=== PATIENT | male | born 1965 | race Caucasian/White ===

== ENCOUNTER 2016-07-06 12:55 | Emergency (ER) | payer OTHER ==
[~2016-07-06] VITALS: Ht 185.4 cm; Wt 95.3 kg
[~2016-07-06 12:55] MED LIST: ALBUTEROL0.63 MG/1 INH/SOL; AMOXIL 875 MG875 MG PO; ASPIRIN CHILDRE81 MG PO; ATORVASTATIN CA20 MG PO; AZITHROMYCIN250 M1 PO; BENZONATATE100 M1 PO; CARTIA XT180 MG PO; GABAPENTIN300 MG; INDOMETHACIN50 MG; LEADER NIC14 MG/24 H TOP; LISINOPRIL AND1 TAB PO; NICODERM C14 MG/24 H TOP; OXYCODONE HCL15 MG PO; OXYCODONE HCL20 M2 PO; OXYCODONE5 M1 PO; PERCOCET 325 MG1 TA2 PO; PROVENTIL HFA6.7 GM INH; TOPROL XL 50MG50 MG PO; TOPROL XL25 MG PO; XARELTO20 MG PO
[2016-07-06 13:10] VITALS: BP 129/83
--- NOTE | 2016-07-06 14:12 | ED NECK/BACK PAIN COMPLAINT ---
History of Present Illness General Chief Complaint: Low Back Pain/Injury Stated Complaint: LBP/CHRONIC Source: patient, old records Exam Limitations: no limitations Vital Signs & Intake/Output Vital Signs & Intake/Output Vital Signs Date Time Temp Pulse Resp B/P Pulse O2 O2 Flow FiO2 Ox Delivery Rate 07/06 1428 Room Air Room Air 07/06 1310 97.7 79 20 129/83 96 Room Air Allergies Coded Allergies: NO KNOWN ALLERGIES (07/06/16) Reconcile Medications Albuterol Sulfate (Proventil Hfa) 6.7 GM HFA.AER.AD 2 PUF INH Q4 PRN bronchospasm Atorvastatin Calcium (Lipitor) 20 MG TABLET 20 MG PO 1700 CHOLESTEROL Azithromycin 250 MG TABLET 250 MG PO ONCE BRONCHITIS Benzonatate 100 MG CAPSULE 100 MG PO TID PRN cough DILTIAZEM HCL (Cartia Xt) 180 MG CAP.ER.24H 1 CAP PO BID ATRIAL FIBIRILLATION LISINOPRIL/HYDROCHLOROTHIAZIDE (Lisinopril-Hctz 10-12.5 MG Tab) (Unknown Strength) TABLET 1 TAB PO DAILY HTN (Reported) Oxycodone HCl 20 MG TABLET 1 TAB PO TID PAIN (Reported) Oxycodone HCl 10 MG TABLET 1 TAB PO BID PRN PAIN OXYCODONE HCL/ACETAMINOPHEN (Percocet 5-325 MG Tablet) 325 MG/5 MG TAB 1-2 TAB PO Q4-6 PRN PRN PAIN Rivaroxaban (Xarelto) 20 MG TABLET 1 TAB PO DAILY BLOOD THINNER with food Rivaroxaban (Xarelto) 20 MG TABLET 1 TAB PO DAILY BLOOD THINNER with food Triage Note: TRIAGE: PT TO ER C/C CHRONIC LOW BACK PAIN X 2 YEARS, RAN OUT OF OXYCODONE 10 MG LAST NIGHT. STATES HIS DOCTOR "CAN'T DO IT NO MORE AND I'M ON THE LIST TO GET INTO PAIN MANAGEMENT." Triage Nurses Notes Reviewed? yes HPI: Patient is a 50 year old male presents complaining of severe low back pain. Back pain x 2.5 years, reports he has 4 lumbar herniated discs. Was on 10 mg of oxycodone twice a day. Ran out yesterday, patient reports his primary care doctor, Dr. Rubio told him today that he can no longer prescribe pain medication and has referred him to pain management and told the patient to come to the ED today. Pain consistent with his chronic pain, sharp, radiates down his elft lower extremity. Denies numbness, incontinence, weakness. Past History Travel History Traveled to [place] past 21 day No Medical History Any Pertinent Medical History? see below for history Neurological: NONE EENT: NONE Cardiovascular: AFIB, hypertension, hyperlipidemia, ON XARELTO Respiratory: NONE Gastrointestinal: diverticulitis Hepatic: NONE Renal: nephrolithiasis, hematuria Musculoskeletal: chronic back pain, disk herniation Psychiatric: NONE Endocrine: NONE Blood Disorders: NONE Cancer(s): NONE MANAGER OF HOSPITAL/Reproductive: NONE Other Medical Hx: Hematuria secondary to bladder calculi History of MRSA: No History of VRE: No History of CDIFF: No Surgical History Surgical History: appendectomy, BACK SURGERY (2006) Psychosocial History Who do you live with Family Services at Home None What is your primary language Danish Tobacco Use: Current Daily Use Daily Tobacco Use Amount/Type: => 5 Cigarettes daily ETOH Use: occasional use Illicit Drug Use: denies illicit drug use Family History Family History, If Any: MOTHER, ; Cause: Lung cancer. FATHER (CVA). ; Cause: Surgical complication. Relation not specified for: FH: myocardial infarction Hx Contributory? No Review of Systems Review of Systems Constitutional: Reports: no symptoms. Eyes: Reports: no symptoms. Respiratory: Denies: cough, short of breath. Cardiovascular: Denies: chest pain. Gastrointestinal/Abdominal: Denies: abdominal pain. Musculoskeletal: Reports: see HPI. Skin: Reports: no symptoms. Neurological/Psychological: Denies: headache, numbness, paresthesia. Physical Exam Physical Exam General Appearance: well developed/nourished, alert, awake Head: atraumatic, normal appearance Eyes: Bilateral: normal appearance, PERRL, EOMI. Ears, Nose, Throat, Mouth: hearing grossly normal, moist mucous membrane Neck: normal inspection, supple, full range of motion Respiratory: no respiratory distress Gastrointestinal: soft, non-tender Back: normal inspection, normal range of motion, muscle spasm (lumbar bilateral) , mild diffuse lumbar tenderness Extremities: non-tender, normal range of motion Straight Leg Raising: Right: Pain at ____ degrees. Left: Pain at ____ degrees. DTR: Patellar: 2: L4 Right, L4 Left. Neurologic/Psych: no motor/sensory deficits, awake, alert, oriented x 3, normal mood/affect Skin: intact, normal color, warm/dry Progress Differential Diagnosis: AAA, cauda equina syn, herniated disc, myofascial strain , sciatica, T/L spine injury, ureterolithiasis Plan of Care: Current Medications Sig/Billie Start time Last Medication Dose Stop Time Status Admin Oxycodone/ 2 TAB ONCE ONE 07/06 1430 UNVr Acetaminophen 07/06 1431 (Percocet) Pain consistent with patient's previous chronic back pain. No red flags on exam or by history. Labs and imaging deferred. Patient's history reviewed in [facility] (OLIVIER GERMAN,MARTY) Departure Departure Time of Disposition: 1416 Disposition: HOME OR SELF CARE Condition: Stable Clinical Impression Primary Impression: Chronic back pain Qualifiers: Back pain location: low back pain Back pain laterality: bilateral Sciatica presence: with sciatica Sciatica laterality: sciatica of left side Qualified Codes: M54.42 - Lumbago with sciatica, left side; G89.29 - Other chronic pain Referrals: BEL RUBIO MD (PCP/Family) Additional Instructions: Follow up with your primary doctor and pain management. Return to the ER if numbness, incontinence, abnormal bruising or bleeding or worsening of symptoms. Departure Forms: Customer Survey General Discharge Information Prescriptions: Current Visit Scripts Oxycodone HCl 1 TAB PO BID PRN PAIN #20 TAB
[2016-07-06] MEDS ORDERED: OXYCODONE HCL10 M2 PO (14:20)
== END 2016-07-06 14:31 ==
LOC: ERH 12:55
DX: M54.5 Low back pain (principal)

== ENCOUNTER 2016-07-16 11:23 | Emergency (ER) | payer OTHER ==
[~2016-07-16] VITALS: Ht 185.4 cm; Wt 95.3 kg
[~2016-07-16 11:23] MED LIST changes: +OXYCODONE HCL10 M2 PO
--- NOTE | 2016-07-16 12:38 | ED NECK/BACK PAIN COMPLAINT ---
History of Present Illness General Chief Complaint: Low Back Pain/Injury Stated Complaint: LOW BACK PAIN Source: patient, old records Exam Limitations: no limitations Vital Signs & Intake/Output Vital Signs & Intake/Output Vital Signs Date Time Temp Pulse Resp B/P Pulse O2 O2 Flow FiO2 Ox Delivery Rate 07/16 1251 97.3 92 18 122/78 97 Room Air 07/16 1126 96.1 100 18 118/84 98 Room Air Allergies Coded Allergies: NO KNOWN ALLERGIES (07/06/16) Reconcile Medications Albuterol Sulfate (Proventil Hfa) 6.7 GM HFA.AER.AD 2 PUF INH Q4 PRN bronchospasm Atorvastatin Calcium (Lipitor) 20 MG TABLET 20 MG PO 1700 CHOLESTEROL DILTIAZEM HCL (Cartia Xt) 180 MG CAP.ER.24H 1 CAP PO BID ATRIAL FIBIRILLATION LISINOPRIL/HYDROCHLOROTHIAZIDE (Lisinopril-Hctz 10-12.5 MG Tab) (Unknown Strength) TABLET 1 TAB PO DAILY HTN (Reported) Methylprednisolone. (Medrol) 4 MG TAB.DS.PK 1 DP PO AD RADICULOPATHY 6 on day 1 then reduce by one tablet daily until gone Oxycodone HCl 20 MG TABLET 1 TAB PO TID PAIN (Reported) Oxycodone HCl 10 MG TABLET 1 TAB PO TID PRN BREAKTHROUGH PAIN Oxycodone HCl 10 MG TABLET 1 TAB PO BID PRN PAIN Rivaroxaban (Xarelto) 20 MG TABLET 1 TAB PO DAILY BLOOD THINNER with food Triage Note: 50 Y/O MALE C/O LOW BACK PAIN X FEW YEARS. WAS PRESCRIBED OXYCODONE 10MG DURING LAST ED VISIT IN JUN AND STATES HE RAN OUT LAST NIGHT. Triage Nurses Notes Reviewed? yes Onset: Abrupt Duration: week(s): (2), constant, waxing and waning Timing: recent history Quality/Severity: moderate, severe, aching Location: lumbar spine, paraspinous muscles Radiation: buttocks, upper legs Method of Injury: unknown Loss of Consciousness: no loss of consciousness Modifying Factors: movement, pain medication, rest Associated Symptoms: denies HPI: 50-year-old male with history of A. fib on XARELTO, chronic back pain status post discectomy several years ago presents emergency room for evaluation complaining of exacerbation of his chronic pain right greater than left that is draining down his right leg. He denies any known new injury trauma or fall. He denies any urinary or bowel incontinence no hematuria abdominal pain fever chills chest pain shortness of breath. The patient is scheduled to establish care with pain management and Rekha on July 24 and presents today requesting refill of his oxycodone. Pain is worse with change in position better at rest. There are no other associated symptoms or modifying factors otherwise. (IAN CASTORENA) Past History Travel History Traveled to [place] past 21 day No Medical History Any Pertinent Medical History? see below for history Neurological: NONE EENT: NONE Cardiovascular: AFIB, hypertension, hyperlipidemia, ON XARELTO Respiratory: NONE Gastrointestinal: diverticulitis Hepatic: NONE Renal: nephrolithiasis, hematuria Musculoskeletal: chronic back pain, disk herniation Psychiatric: NONE Endocrine: NONE Blood Disorders: NONE Cancer(s): NONE FIFTH HAND/Reproductive: NONE Other Medical Hx: Hematuria secondary to bladder calculi History of MRSA: No History of VRE: No History of CDIFF: No Surgical History Surgical History: appendectomy, BACK SURGERY (2006) Psychosocial History Who do you live with Family Services at Home None What is your primary language Maltese Tobacco Use: Current Daily Use Daily Tobacco Use Amount/Type: => 5 Cigarettes daily Family History Family History, If Any: MOTHER, ; Cause: Lung cancer. FATHER (CVA). ; Cause: Surgical complication. Relation not specified for: FH: myocardial infarction Hx Contributory? No (IAN CASTORENA) Review of Systems Review of Systems Constitutional: Reports: see HPI. All Other Systems: Reviewed and Negative Comments Review of systems: See HPI, All other systems negative. Constitutional, no chills no fever, no malaise HEENT: No visual changes no sore throat no congestion Cardiovascular: No chest pain , no palpitation Skin, no rashes, no change in skin Respiratory: No dyspnea no cough no sputum GI: No nausea no vomiting, no diarrhea, no bloating/constipation : No dysuria No hematuria, no frequency, Muscle skeletal: No joint pain, no joint swelling, back pain, no neck pain, Neurologic: No numbness, no headache Psych: No stress Heme/endocrine: No bruising no bleeding Immunology: No lymphadenopathy (IAN CASTORENA) Physical Exam Physical Exam General Appearance: well developed/nourished, alert, awake Neck: normal inspection, supple, full range of motion Comments: Well-developed well-nourished person in no acute distress HEENT: Normal EENT exam; PERRL, EOMI HEAD is atraumatic. moist mucous membranes. Neck: Supple, , normal range of motion without pain or tenderness Back: Right sided paralumbar muscle tenderness with palpation of midline tenderness, no CVA tenderness. Full range of motion Cardiovascular: Regular rate and rhythms no murmurs rubs Respiratory: Chest nontender.There were no bony deformities, no asymmetry. No respiratory distress. Patient speaking in full complete sentences. Breath sounds clear to auscultation bilaterally: NO W/R/R Abdomen: Soft, nontender nondistended, no appreciable organomegaly. Normal bowel sounds. No rebound/guarding, No appreciable enlargement of the abdominal aorta, No ascites. Extremity: No edema, has a straight leg raise to the right lower extremity full range of motion of extremities, normal and equal pulses bilaterally, 5 out of 5 strength noted to bilateral upper and lower extremities Neuro: Alert oriented x3, motor sensory normal, There were no obvious focal neurologic abnormalities. Skin: No appreciable rash on exposed skin, skin is warm and dry. Psych: Mood and affect is normal, memory and judgment is normal. (IAN CASTORENA) Progress Differential Diagnosis: herniated disc, myofascial strain, pyelo/UTI, sciatica, spinal cord inj, ureterolithiasis, epidural abscess Plan of Care: Patient clinically looks well, he has an appointment with pain management he states on July 24 in [place]. No urinary bowel dysfunction. No numbness in the genital area. Strength intact. Gross sensation intact. Patient resting comfortably and in no apparent distress. Pain is worse with range of motion. Pain is reproducible IN back with no bruising or ecchymosis noted. . Patient is to follow-up with primary care doctor. May need MRI of the lower back at some point time. No concerns for cauda equina at this point time. I considered this diagnosis but patient does not have any symptoms consistent with cauda equina. Patient has no secondary causes of back pain. No cardiac, pulmonary, or abdominal complaints. No abdominal pain on exam. Cardiac pulmonary exam within normal limits. No rashes, afebrile, denies recent weight loss, dizziness, lightheadedness (IAN CASTORENA) Departure Departure Time of Disposition: 1241 Disposition: HOME OR SELF CARE Condition: Stable Clinical Impression Primary Impression: Chronic back pain Referrals: RICHARD LOVETT,BEL (PCP/Family) Additional Instructions: Follow-up with your primary care physician as well as pain management as scheduled next week this emergency room cannot continue to prescribe narcotic pain medication. Oxycodone as directed use caution as this is a narcotic and highly addictive. This will make you drowsy no driving or drinking alcohol while taking. Medrol Dosepak as discussed. These prescriptions were sent to [facility]. Rest ice and ibuprofen 800 mg every 8 hours Departure Forms: Customer Survey General Discharge Information Prescriptions: Current Visit Scripts Oxycodone HCl 1 TAB PO TID PRN BREAKTHROUGH PAIN #20 TAB Methylprednisolone. (Medrol) 1 DP PO AD #1 DP 6 on day 1 then reduce by one tablet daily until gone (CHERELLE GERMAN,IAN)
[2016-07-16] MEDS ORDERED: MEDROL4 M2 PO (12:44)
[2016-07-16] MEDS ORDERED: OXYCODONE HCL10 M2 PO (12:44)
[2016-07-16 12:51] VITALS: BP 122/78
== END 2016-07-16 12:51 ==
LOC: ERH 11:23
DX: G89.29 Other chronic pain (principal); M54.5 Low back pain

== ENCOUNTER 2016-08-01 19:51 | Emergency (ER) | payer OTHER ==
[~2016-08-01] VITALS: Ht 185.4 cm; Wt 95.3 kg
[~2016-08-01 19:51] MED LIST changes: +MEDROL4 M2 PO
--- NOTE | 2016-08-01 21:09 | ED MVC/FALL/TRAUMA COMPLAINT ---
History of Present Illness General Chief Complaint: Fall Stated Complaint: FALL,BODY PAIN Source: patient Exam Limitations: no limitations Vital Signs & Intake/Output Vital Signs & Intake/Output Vital Signs Date Time Temp Pulse Resp B/P Pulse O2 O2 Flow FiO2 Ox Delivery Rate 08/01 2312 96.5 60 18 96/70 08/017 100/64 08/01 2025 97.0 56 20 98/60 95 Room Air ED Intake and Output 08/02 0000 08/01 1200 Intake Total 20 Output Total Balance 20 Intake, Oral 20 Patient 210 lb Weight Allergies Coded Allergies: NO KNOWN ALLERGIES (08/01/16) Reconcile Medications Albuterol Sulfate (Proventil Hfa) 6.7 GM HFA.AER.AD 2 PUF INH Q4 PRN bronchospasm Atorvastatin Calcium (Lipitor) 20 MG TABLET 20 MG PO 1700 CHOLESTEROL DILTIAZEM HCL (Cartia Xt) 180 MG CAP.ER.24H 1 CAP PO BID ATRIAL FIBIRILLATION Ketorolac Tromethamine 10 MG TABLET 1 TAB PO TID PRN PAIN RECEIVED im IN er LISINOPRIL/HYDROCHLOROTHIAZIDE (Lisinopril-Hctz 10-12.5 MG Tab) (Unknown Strength) TABLET 1 TAB PO DAILY HTN (Reported) Metaxalone (Skelaxin) 800 MG TABLET 1 TAB PO TID PRN MUSCLE RELAXOR Methylprednisolone. (Medrol) 4 MG TAB.DS.PK 1 DP PO AD RADICULOPATHY 6 on day 1 then reduce by one tablet daily until gone Oxycodone HCl 20 MG TABLET 1 TAB PO TID PAIN (Reported) Oxycodone HCl 10 MG TABLET 1 TAB PO TID PRN BREAKTHROUGH PAIN Oxycodone HCl 10 MG TABLET 1 TAB PO BID PRN PAIN Rivaroxaban (Xarelto) 20 MG TABLET 1 TAB PO DAILY BLOOD THINNER with food Triage Note: TRIAGE: PT TO ER WITH C/C PAIN TO R LOW BACK AND RIB AREA S/P FALL APPROX 30 MIN COATER HELPER. STATES HE SLIPPED ON CEMENT STAIRS, FALLING APPROX 3-4 STEPS. HAS HX OF CHRONIC BACK PAINS, ?BACK PROBLEM AT BASELINE. TOOK 800 MG IBUPROFEN X 2 TABS JUST COATER HELPER. Triage Nurses Notes Reviewed? yes Onset: Abrupt Duration: constant Timing: single episode today Severity Numbers: 10 Injuries/Fall Location: chest, back Loss of Consciousness: no loss of consciousness HPI: Patient is a 50-year-old male with past medical history of chronic pain and chronic back pain who presents emergent stain that he was walking down steps misstepped and fell and struck the right lateral aspect of his ribs to the steps. Patient denies any preceding episode of dizziness or lightheaded sensation. Patient states that at lunch she had one beer only. Denies any head strike denies any loss of consciousness. Complains of severe right rib lateral pain and severe back pain. Denies any extremity weakness or bladder incontinence or bowel incontinence. No medications prior to arrival. Patient was brought in by his friend. (IAN CALABRESE) Past History Travel History Traveled to [facility] past 21 day No Medical History Any Pertinent Medical History? see below for history Neurological: NONE EENT: NONE Cardiovascular: AFIB, hypertension, hyperlipidemia, ON XARELTO Respiratory: NONE Gastrointestinal: diverticulitis Hepatic: NONE Renal: nephrolithiasis, hematuria Musculoskeletal: chronic back pain, disk herniation Psychiatric: NONE Endocrine: NONE Blood Disorders: NONE Cancer(s): NONE SIDEROGRAPHIST/Reproductive: NONE Other Medical Hx: Hematuria secondary to bladder calculi History of MRSA: No History of VRE: No History of CDIFF: No Surgical History Surgical History: appendectomy, BACK SURGERY (2006) Psychosocial History Who do you live with Family Services at Home None What is your primary language Georgian Tobacco Use: Current Daily Use Daily Tobacco Use Amount/Type: => 5 Cigarettes daily ETOH Use: occasional use Illicit Drug Use: marijuana Family History Family History, If Any: MOTHER, ; Cause: Lung cancer. FATHER (CVA). ; Cause: Surgical complication. Relation not specified for: FH: myocardial infarction Hx Contributory? No (IAN CALABRESE) Review of Systems Review of Systems Constitutional: Reports: no symptoms. Eyes: Reports: no symptoms. Ears, Nose, Throat, Mouth: Reports: no symptoms. Respiratory: Reports: see HPI. Denies: cough, short of breath. Cardiovascular: Reports: see HPI, chest pain. Gastrointestinal/Abdominal: Reports: no symptoms. Genitourinary: Reports: no symptoms. Musculoskeletal: Reports: see HPI. Skin: Reports: no symptoms. Neurological/Psychological: Reports: no symptoms. All Other Systems: Reviewed and Negative (IAN CALABRESE) Physical Exam Physical Exam General Appearance: mild distress Comments: HEENT: Normal EENT exam, extraocular motion intact, no nystagmus. Pupils equally round and reactive to light and accommodation. Nose is atraumatic. External auditory canal and Tympanic membranes clear. Pharynx normal. No swelling or edema. Neck: Supple, no lymphadenopathy, normal range of motion without pain or tenderness Back: Normal inspection no signs of trauma decreased active range of motion generalized point tenderness noted Cardiovascular: Regular rate and rhythms no murmurs rubs or gallops, normal JVP Respiratory: Normal inspection no signs of trauma right-sided lateral rib point tenderness noted No respiratory distress.breath sounds clear to auscultation bilaterally Abdomen: Soft, nontender nondistended, no appreciable organomegaly. Normal bowel sounds. No ascites Extremity: No edema, no calf tenderness to palpation, normal and equal pulses. Bilateral lower extremity myotomes dermatomes intact Neuro: Alert oriented x3, motor sensory normal, cranial nerves II through XII grossly intact. Skin: No appreciable rash on exposed skin, skin is warm and dry. Psych: Mood and affect is normal, memory and judgment is normal. Core Measures ACS in differential dx? No Severe Sepsis Present: No Septic Shock Present: No (IAN CALABRESE) Progress Differential Diagnosis: aoritic dissection, abd injury, C/T/L spine injury, ext injury, ICH, pelvis injury, pnemothorax, spinal cord injury Plan of Care: Current Medications Sig/Billie Start time Last Medication Dose Stop Time Status Admin Ketorolac 30 MG ONCE ONE 08/01 2345 UNVr Tromethamine 08/01 2346 (Toradol) Sodium Chloride 1,000 ML BOLUS ONE 08/01 2330 AC (Normal Saline 0.9%) 08/02 0029 Patient initially noted to have mild distress and hypotensive however CT scans were unremarkable for patient was symptomatically painful however there were no signs of trauma. Narcotics were withheld I strongly advised patient to receive IV fluid bolus for his low blood sugar however he declined and which I strongly advised patient to receive this however he wants to leave AGAINST MEDICAL ADVICE. Patient was strongly advised to follow up with his cardiology appointment as he has one tomorrow with Dr. Carbone. Patient had normal steady gait on discharge (IAN CALABRESE) Diagnostic Imaging: Viewed by Me: CT Scan. Radiology Impression: no acute abnormality, no fracture Comments: PATIENT: IAN SANFORD PRESENT AGE: 50 PATIENT ACCOUNT NO: [id number] : 66 LOCATION: [facility] ORDERING PHYSICIAN: IAN GERMAN SERVICE DATE: 08/01/16 EXAM TYPE: CAT - CT CERV SPINE WO IV CONTRAST; CT CHEST WO IV CONTRAST; CT HEAD WO IV CONTRAST; CT LUMB SPINE WO IV CONTRAST EXAMINATION: CT CHEST WO IV CONTRAST, CT LUMB SPINE WO IV CONTRAST, CT HEAD WO IV CONTRAST, CT CERV SPINE WO IV CONTRAST CLINICAL INFORMATION: 50-year-old male experienced trauma. Right lateral rib pain. Head trauma. Cervical and lumbar spine pain. COMPARISON: CT the brain on 10/09/2015. Chest x-ray on the same day. TECHNIQUE: Noncontrast enhanced scans of the brain, cervical spine, chest, and LS-spine. Coronal and sagittal reformats obtained at the acquisition workstation. DLP: 933 mGy-cm c-spine and brain, 624 my-cm for LS spine, 319 mGy-cm for chest. FINDINGS: Brain: There is no evidence of acute intracranial hemorrhage or territorial infarction. No mass or midline shift is seen. Alexandra-white matter tissue differentiation is normal. No abnormal extra-axial collections are seen. The ventricles are normal in size. Brain attenuation is normal. The calvarium is intact the soft tissues are normal. There is ethmoid sinusitis. Mastoid aeration is normal. C-spine: Vertebral height alignment are normal. No fractures are seen. There is accessory ossification center involving the spinous process at C7. The prevertebral soft tissues are normal. The C1-C2 relationships are normal. Small bubbles of air are seen at the level of C4-C5 to the right of midline representing herniating degenerative disc material or degenerative changes in the uncovertebral joints. Series 801, image 21. Additional arthritis is seen in the uncovertebral joints above and below this level. CHEST: There is no pneumothorax or hemothorax. Lungs are clear showing no lung contusion. Subcentimeter lymph nodes are present in the mediastinum but there is no mediastinal hematoma formation. Patient does have a hiatal hernia. The heart is unremarkable except for some calcification in the left coronary artery. A tiny great calcified atheromatous seen in the left upper lobe. Series 5, image 124. Another calcified granuloma is seen in the anterior segment of the left upper lobe. Series 5, image 224. A tiny calcified granuloma is seen in the left upper lobe, series 5, image 203. Another calcified granuloma is seen in the right lower lobe. Series 5, image 288. Additional calcified granulomas are seen in the right middle lobe. Vertebral height alignment are maintained. Large osteophytes are present in the lower thoracic spine. The sternum is intact. No rib fractures are seen. LS-spine: Vertebral height alignment are normal. There is no fracture. Sacrum is intact. The paraspinal soft tissues are normal. A tiny accessory spleen is evident medial to the spleen. IMPRESSION: 1. No acute intracranial pathology. 2. No evidence of cervical spine fracture. 3. No posttraumatic sequela in the chest. Multiple calcified granulomata in the lungs. 4. No evidence of fracture or subluxation of the LS-spine. DICTATED BY: JANIS RAVI MD DATE/TIME DICTATED:08/01/162247 BOBBIN PAINTER:MATTHIAS DATE/TIME TRANSCRIBED:08/01/162247 (IAN CALABRESE) Departure Departure Disposition: LEFT AGAINST MEDICAL ADVICE Condition: Stable Clinical Impression Primary Impression: Low back strain Secondary Impressions: Arthralgia, Hypotension Referrals: BEL RAMOS MD (PCP/Family) Additional Instructions: As discussed begin icing the area directly 20 minutes every 2 hours. Begin the prescription of ketorolac for pain and inflammation. Begin the prescription Skelaxin for muscle relaxer. Follow-up with your voice systems engineer tomorrow as you have an appointment. Begin drinking plenty water for hydration. Again your leaving AGAINST MEDICAL ADVICE. If symptoms worsen return to emergency room. Follow-up with your primary care doctor in 2 days if no better. Prescriptions waiting at [facility] pharmacy. Departure Forms: Customer Survey General Discharge Information Prescriptions: Current Visit Scripts Ketorolac Tromethamine 1 TAB PO TID PRN PAIN #15 TAB RECEIVED im IN er Metaxalone (Skelaxin) 1 TAB PO TID PRN MUSCLE RELAXOR #15 TAB (IAN CALABRESE) PA/MARKETING PROGRAM COORDINATOR Co-Sign Statement Statement: ED Attending supervision documentation- [] I saw and evaluated the patient. I have also reviewed all the pertinent lab results and diagnostic results. I agree with the findings and the plan of care as documented in the PA's/MARKETING PROGRAM COORDINATOR's documentation. [X] I have reviewed the ED Record and agree with the PA's/MARKETING PROGRAM COORDINATOR's documentation. [] Additions or exceptions (if any) to the PAs/MARKETING PROGRAM COORDINATOR's note and plan are summarized below: [] (CHRIS LOVETT,KEENA Mcelroy)
[2016-08-01 23:12] VITALS: BP 96/70
--- NOTE | 2016-08-01 23:16 | CT SCAN REPORT ---
EXAMINATION: CT CHEST WO IV CONTRAST, CT LUMB SPINE WO IV CONTRAST, CT HEAD WO IV CONTRAST, CT CERV SPINE WO IV CONTRAST CLINICAL INFORMATION: 50-year-old male experienced trauma. Right lateral rib pain. Head trauma. Cervical and lumbar spine pain. COMPARISON: CT the brain on 10/09/2015. Chest x-ray on the same day. TECHNIQUE: Noncontrast enhanced scans of the brain, cervical spine, chest, and LS-spine. Coronal and sagittal reformats obtained at the acquisition workstation. DLP: 933 mGy-cm c-spine and brain, 624 my-cm for LS spine, 319 mGy-cm for chest. FINDINGS: Brain: There is no evidence of acute intracranial hemorrhage or territorial infarction. No mass or midline shift is seen. Alexandra-white matter tissue differentiation is normal. No abnormal extra-axial collections are seen. The ventricles are normal in size. Brain attenuation is normal. The calvarium is intact the soft tissues are normal. There is ethmoid sinusitis. Mastoid aeration is normal. C-spine: Vertebral height alignment are normal. No fractures are seen. There is accessory ossification center involving the spinous process at C7. The prevertebral soft tissues are normal. The C1-C2 relationships are normal. Small bubbles of air are seen at the level of C4-C5 to the right of midline representing herniating degenerative disc material or degenerative changes in the uncovertebral joints. Series 801, image 21. Additional arthritis is seen in the uncovertebral joints above and below this level. CHEST: There is no pneumothorax or hemothorax. Lungs are clear showing no lung contusion. Subcentimeter lymph nodes are present in the mediastinum but there is no mediastinal hematoma formation. Patient does have a hiatal hernia. The heart is unremarkable except for some calcification in the left coronary artery. A tiny great calcified atheromatous seen in the left upper lobe. Series 5, image 124. Another calcified granuloma is seen in the anterior segment of the left upper lobe. Series 5, image 224. A tiny calcified granuloma is seen in the left upper lobe, series 5, image 203. Another calcified granuloma is seen in the right lower lobe. Series 5, image 288. Additional calcified granulomas are seen in the right middle lobe. Vertebral height alignment are maintained. Large osteophytes are present in the lower thoracic spine. The sternum is intact. No rib fractures are seen. LS-spine: Vertebral height alignment are normal. There is no fracture. Sacrum is intact. The paraspinal soft tissues are normal. A tiny accessory spleen is evident medial to the spleen. IMPRESSION: 1. No acute intracranial pathology. 2. No evidence of cervical spine fracture. 3. No posttraumatic sequela in the chest. Multiple calcified granulomata in the lungs. 4. No evidence of fracture or subluxation of the LS-spine.
[2016-08-01] MEDS ORDERED: KETOROLAC TROME10 M1 PO (23:48)
[2016-08-01] MEDS ORDERED: SKELAXIN800 M1 PO (23:48)
== END 2016-08-02 00:12 | disposition left against medical advice (07) ==
LOC: ERH 19:51
DX: S39.012A Strain of muscle, fascia and tendon of lower back, initial encounter (principal); I95.9 Hypotension, unspecified; M25.50 Pain in unspecified joint; W10.9XXA Fall (on) (from) unspecified stairs and steps, initial encounter
CPT/HCPCS: 96372

== ENCOUNTER 2016-10-15 11:38 | Emergency (ER) | payer OTHER ==
[~2016-10-15] VITALS: Ht 182.9 cm; Wt 95.3 kg
[~2016-10-15 11:38] MED LIST changes: +KETOROLAC TROME10 M1 PO; +SKELAXIN800 M1 PO
[2016-10-15 11:55] VITALS: BP 149/88
--- NOTE | 2016-10-15 12:17 | ED UPPER/LOWER EXTREMITY COMPL ---
History of Present Illness General Chief Complaint: General Adult Stated Complaint: FALL X 3 WEEKS AGO, LT HIP LOW BACK PAIN Source: patient Exam Limitations: no limitations Vital Signs & Intake/Output Vital Signs & Intake/Output Vital Signs Date Time Temp Pulse Resp B/P B/P Pulse O2 O2 Flow FiO2 Mean Ox Delivery Rate 10/15 1155 96.8 66 18 149/88 99 Room Air Allergies Coded Allergies: NO KNOWN ALLERGIES (08/01/16) Reconcile Medications Albuterol Sulfate (Proventil Hfa) 6.7 GM HFA.AER.AD 2 PUF INH Q4 PRN bronchospasm Atorvastatin Calcium (Lipitor) 20 MG TABLET 20 MG PO 1700 CHOLESTEROL DILTIAZEM HCL (Cartia Xt) 180 MG CAP.ER.24H 1 CAP PO BID ATRIAL FIBIRILLATION Ketorolac Tromethamine 10 MG TABLET 1 TAB PO TID PRN PAIN RECEIVED im IN er LISINOPRIL/HYDROCHLOROTHIAZIDE (Lisinopril-Hctz 10-12.5 MG Tab) (Unknown Strength) TABLET 1 TAB PO DAILY HTN (Reported) Meloxicam (Mobic) 15 MG TABLET 1 TAB PO DAILY PRN pain Metaxalone (Skelaxin) 800 MG TABLET 1 TAB PO TID PRN MUSCLE RELAXOR Methylprednisolone. (Medrol) 4 MG TAB.DS.PK 1 DP PO AD RADICULOPATHY 6 on day 1 then reduce by one tablet daily until gone Oxycodone HCl 20 MG TABLET 1 TAB PO TID PAIN (Reported) Oxycodone HCl 10 MG TABLET 1 TAB PO TID PRN BREAKTHROUGH PAIN Oxycodone HCl 10 MG TABLET 1 TAB PO BID PRN PAIN Oxycodone HCl/Acetaminophen (Percocet 5-325 MG Tablet) 5 MG-325 MG TABLET 1 TAB PO BID PRN PAIN Rivaroxaban (Xarelto) 20 MG TABLET 1 TAB PO DAILY BLOOD THINNER with food Triage Note: PT STATES THAT HE FELL ABOUT 1 MONTH AGO AND HURT HIS LOW BACK AND L HIP, WAS SEEN AT URGENT CARE HAD XRAYS THAT WERE NEGATIVE. PT HAS BEEN ON OXYCODONE FOR A COUPLE OF YEARS AND THAT HIS PMD STOPPED PRESCRIBING THEM 2 MONTHS AGO. STATES THAT HE RAN OUT OXYCODONE 1 WEEK AGO. HIS PMD WANTS HIME TO GO TO PAIN MANAGEMENT Triage Nurses Notes Reviewed? yes Onset: Abrupt Duration: constant Timing: single episode today Severity: severe Severity Numbers: 7 Method of Injury: unknown HPI: Patient is a 51-year-old male with a past medical history of chronic back pain who used to receive significant narcotics on a regular basis by her primary care doctor however this was discontinued recently patient states that 1 month ago he fell going down stairs and suffered significant contusion to his left hip where he was evaluated at urgent care facility received unremarkable x-ray findings for fractures 4 where his tenderness was located. Patient states that he had a short term of narcotics administered where he had complete resolution of the symptoms. Patient states that this morning he woke up with generalized worsening back pain and denies any mechanism of injury. (IAN CALABRESE) Past History Travel History Traveled to [place] past 21 day No Medical History Any Pertinent Medical History? 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 FATHER (CVA). ; Cause: Surgical complication. Relation not specified for: FH: myocardial infarction Hx Contributory? No (IAN CALABRESE) Review of Systems Review of Systems Constitutional: Reports: no symptoms. EENTM: Reports: no symptoms. Respiratory: Reports: no symptoms. Cardiovascular: Reports: no symptoms. Gastrointestinal/Abdominal: Reports: no symptoms. Genitourinary: Reports: no symptoms. Musculoskeletal: Reports: see HPI, back pain, muscle pain, muscle stiffness. Skin: Reports: no symptoms. Neurological/Psychological: Reports: no symptoms. Hematologic/Endocrine: Reports: no symptoms. Immunological: Reports: no symptoms. All Other Systems: Reviewed and Negative (IAN CALABRESE) Physical Exam Physical Exam General Appearance: no apparent distress, alert, comfortable Comments: Well-developed well-nourished person in no acute distress HEENT: Normal EENT exam, Neck: Supple, no lymphadenopathy, normal range of motion without pain or tenderness Back: Normal inspection bilateral paralumbar muscular type pain, decreased active range of motion noted Cardiovascular: Regular rate and rhythms no murmurs rubs or gallops, normal JVP Respiratory: Chest nontender. No respiratory distress.breath sounds clear to auscultation bilaterally Abdomen: Soft, nontender nondistended, no appreciable organomegaly. Normal bowel sounds. No ascites Extremity: No edema, no calf tenderness to palpation, normal and equal pulses. Bilateral lower extremity myotomes dermatomes intact Neuro: Alert oriented x3, motor sensory normal, Skin: No appreciable rash on exposed skin, skin is warm and dry. Psych: Mood and affect is normal, memory and judgment is normal. (IAN CALABRESE) Progress Differential Diagnosis: arterial insufficiency, compartment syndrome, contusion, dislocation, DVT, fracture, gout, septic arthritis, sprain, tendon injury, DISCITIS, LUMBAR STRAIN, HERNIATED DISC, FRACTURE SPINAL ABSCESS Plan of Care: Differential diagnosis include CAUDA EQUINA syndrome. Patient had no concerns of neurovascular impairment of lower extremities. Patient will be treated for concerns of acute on chronic low back pain. Patient had normal steady gait on discharge and drove here (IAN CALABRESE) Departure Departure Disposition: HOME OR SELF CARE Condition: Stable Clinical Impression Primary Impression: Back pain Referrals: BEL RAMOS MD (PCP/Family) Additional Instructions: As discussed begin the prescription of meloxicam as directed Begin the prescription of Percocet for breakthrough pain relief. Prescriptions waiting at [place] pharmacy. If symptoms worsen return to emergency room. If no better in 5 days follow-up with primary care doctor Departure Forms: Customer Survey General Discharge Information Prescriptions: Current Visit Scripts Meloxicam (Mobic) 1 TAB PO DAILY PRN pain #15 TAB Oxycodone HCl/Acetaminophen (Percocet 5-325 MG Tablet) 1 TAB PO BID PRN PAIN #8 TAB (IAN CALABRESE) PA/WINDOW SHADE CUTTER Co-Sign Statement Statement: ED Attending supervision documentation- [] I saw and evaluated the patient. I have also reviewed all the pertinent lab results and diagnostic results. I agree with the findings and the plan of care as documented in the PA's/WINDOW SHADE CUTTER's documentation. [X] I have reviewed the ED Record and agree with the PA's/WINDOW SHADE CUTTER's documentation. [] Additions or exceptions (if any) to the PAs/WINDOW SHADE CUTTER's note and plan are summarized below: [] (LEO LOVETT,SUN)
[2016-10-15] MEDS ORDERED: PERCOCET 5-3251 EACH PO (12:35)
[2016-10-15] MEDS ORDERED: MOBIC15 M1 PO (12:35)
== END 2016-10-15 12:39 ==
LOC: ERH 11:38
DX: M54.5 Low back pain (principal)

== ENCOUNTER 2017-12-11 22:57 | Inpatient (IN) | payer OTHER ==
[~2017-12-11] VITALS: Ht 185.4 cm; Wt 84.8 kg
[~2017-12-11 22:57] MED LIST changes: +MOBIC15 M1 PO; +PERCOCET 5-3251 EACH PO
[2017-12-11 23:15] LABS: ABSOLUTE BASOPHIL COUNT 0 /CUMM (0.0-0.2); ABSOLUTE EOSINOPHIL COUNT 0.2 /CUMM (0.0-0.7); ABSOLUTE GRANULOCYTE CT 10.5 /CUMM (1.4-6.5); ABSOLUTE LYMPH COUNT 1.3 /CUMM (1.2-3.4); ABSOLUTE MONOCYTE COUNT 0.4 /CUMM (0.10-0.60); BASOPHIL % 0.2 % (0.0-2.0); EOSINOPHIL % 1.8 % (0-5); GRANULOCYTE % 84.2 % (42.2-75.2); HEMATOCRIT 45.5 % (42-52); MEAN CORPUSCULAR HGB 32.3 PG (27.0-31.0); MEAN CORPUSCULAR HGB CONC 33.8 G/DL (33.0-37.0); MEAN CORPUSCULAR VOLUME 95.5 FL (80.0-94.0); MEAN PLATELET VOLUME 7.7 FL (7.4-10.4); PLATELET COUNT 224 /CUMM (130-400); RBC DISTRIBUTION WIDTH 13.7 % (11.5-14.5); RED BLOOD CELL CT 4.77 /CUMM (4.70-6.10); WHITE BLOOD CELL COUNT 12.4 /CUMM (4.8-10.8)
[2017-12-11 23:22] LABS: PT 24.2 SEC (9.4-12.5); PTT 39 SEC (25-37)
--- NOTE | 2017-12-11 23:22 | RADIOLOGY REPORT ---
EXAMINATION: XR PORTABLE CHEST CLINICAL INFORMATION: Unresponsive. Concern for aspiration. COMPARISON: Chest x-ray March 25, 2017 TECHNIQUE: Portable frontal view of the chest was obtained. 11:00 PM FINDINGS: The left lung bases and diaphragm is excluded from the film. Patient's rotated to left. The visualized lungs are clear. No pulmonary vascular congestion. No pneumothorax or large pleural effusion IMPRESSION: No acute abnormality of chest. The left lung base was not included in the [id number].
--- NOTE | 2017-12-11 23:49 | ED AMS/SEIZURE/WEAK/DIZZY ---
History of Present Illness General Chief Complaint: ETOH/Drug Related Complaint Stated Complaint: BIBA FOR OD Source: EMS Exam Limitations: clinical condition Vital Signs & Intake/Output Vital Signs & Intake/Output Vital Signs Date Time Temp Pulse Resp B/P B/P Pulse O2 O2 Flow FiO2 Mean Ox Delivery Rate 12/11 2349 97.4 108 20 155/97 99 Nasal 2.0L Cannula 12/11 2301 103 18 142/80 94 Room Air ED Intake and Output 12/12 0000 12/11 1200 Intake Total Output Total Balance Patient 170 lb Weight Weight Estimated Measurement Method Allergies Coded Allergies: NO KNOWN ALLERGIES (08/01/16) Reconcile Medications Albuterol Sulfate (Proventil Hfa) 6.7 GM HFA.AER.AD 2 PUF INH Q4 PRN bronchospasm Atorvastatin Calcium (Lipitor) 20 MG TABLET 20 MG PO 1700 CHOLESTEROL DILTIAZEM HCL (Cartia Xt) 180 MG CAP.ER.24H 1 CAP PO BID ATRIAL FIBIRILLATION Ketorolac Tromethamine 10 MG TABLET 1 TAB PO TID PRN PAIN RECEIVED im IN er LISINOPRIL/HYDROCHLOROTHIAZIDE (Lisinopril-Hctz 10-12.5 MG Tab) (Unknown Strength) TABLET 1 TAB PO DAILY HTN (Reported) Meloxicam (Mobic) 15 MG TABLET 1 TAB PO DAILY PRN pain Metaxalone (Skelaxin) 800 MG TABLET 1 TAB PO TID PRN MUSCLE RELAXOR Methylprednisolone. (Medrol) 4 MG TAB.DS.PK 1 DP PO AD RADICULOPATHY 6 on day 1 then reduce by one tablet daily until gone Oxycodone HCl 20 MG TABLET 1 TAB PO TID PAIN (Reported) Oxycodone HCl 10 MG TABLET 1 TAB PO TID PRN BREAKTHROUGH PAIN Oxycodone HCl 10 MG TABLET 1 TAB PO BID PRN PAIN Oxycodone HCl/Acetaminophen (Percocet 5-325 MG Tablet) 5 MG-325 MG TABLET 1 TAB PO BID PRN PAIN Rivaroxaban (Xarelto) 20 MG TABLET 1 TAB PO DAILY BLOOD THINNER with food Triage Note: PT BIBA FROM S/P OVERDOSE ON ?HEROIN PER GIRLFRIEND ON [place]. ON EMS ARRIVAL, PT UNRESPONSIVE WITH PULSE. GIVEN 2 MG NARCAN INTRA NASALLY, FOLLOWED BY 9 MG NARCAN IV WITH GOOD EFFECT. PER EMS, PT WITH BETTER RESP EFFORT AFTER NARCAN AND +N/V. PMH OF AFIB.. PT HAS PRE HOSP 18G LAC.. MONSERRAT EVANS AT BEDSIDE TO EVAL PT ON PT ARRIVAL TO ROOM. O2 SAT 95-96% ON 100 NRB. PT NOTED TO HAVE WET COUGH. Triage Nurses Notes Reviewed? yes Onset: Abrupt Duration: unknown duration Timing: recent history No Modifying Factors: none HPI: 52-year-old male comes into the emergency room for overdose. Patient was found to be unresponsive but had a blood pressure and pulse. He was given 11 mg of Narcan en route and became more responsive. He is currently on a nonrebreather. Unable to provide any information. Denies any other associated symptoms. there was no reported trauma. pt was found in reclining chair. (Bean Salazar) Past History Travel History Traveled to [place] past 21 day No Medical History Any Pertinent Medical History? 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 FATHER (CVA). ; Cause: Surgical complication. Relation not specified for: FH: myocardial infarction Hx Contributory? No (Bean Salazar) Review of Systems Review of Systems Constitutional: Reports: no symptoms. EENTM: Reports: no symptoms. Respiratory: Reports: see HPI. Cardiovascular: Reports: no symptoms. GI: Reports: no symptoms. Genitourinary: Reports: no symptoms. Musculoskeletal: Reports: no symptoms. Skin: Reports: no symptoms. Neurological/Psychological: Reports: see HPI. Hematologic/Endocrine: Reports: no symptoms. Immunologic/Allergic: Reports: no symptoms. All Other Systems: Reviewed and Negative (Bean Salazar) Physical Exam Physical Exam General Appearance: severe distress Head: atraumatic Eyes: Bilateral: other (pupils pinpoint). Ears, Nose, Throat: normal ENT inspection, hearing grossly normal Neck: normal inspection Respiratory: respiratory distress (mild) Cardiovascular: tachycardia Extremities: normal inspection Neurologic/Psych: disoriented x 3 Skin: intact Core Measures ACS in differential dx? No CVA/TIA Diagnosis No Sepsis Present: No Sepsis Focused Exam Completed? No (Bean Salazar) Progress Differential Diagnosis: arrythmia, CVA/stroke, dehydration, drug intoxication, encephalitis, electrolyte imbalance, intracranial Hem., intracranial mass/tumor, Aspiration pneumonia, drug overdose, Diagnostic Imaging: Viewed by Me: Radiology Read. Discussed w/RAD: Radiology Read. Radiology Impression: PATIENT: IAN SANFORD PRESENT AGE: 52 PATIENT ACCOUNT NO: [id number] : 66 LOCATION: [facility] ORDERING PHYSICIAN: Bean GERMAN SERVICE DATE: 12/11/17 EXAM TYPE: RAD - XRY-PORTABLE CHEST XRAY EXAMINATION: XR PORTABLE CHEST CLINICAL INFORMATION: Unresponsive. Concern for aspiration. COMPARISON: Chest x-ray March 25, 2017 TECHNIQUE: Portable frontal view of the chest was obtained. 11:00 PM FINDINGS: The left lung bases and diaphragm is excluded from the film. Patient's rotated to left. The visualized lungs are clear. No pulmonary vascular congestion. No pneumothorax or large pleural effusion IMPRESSION: No acute abnormality of chest. The left lung base was not included in the [id number]. DICTATED BY: Joshua Denson MD DATE/TIME DICTATED:12/11/172316 CARDIAC REHAB NURSE:MATTHIAS DATE/TIME TRANSCRIBED:12/11/172316 CONFIDENTIAL, DO NOT COPY WITHOUT APPROPRIATE AUTHORIZATION. <Electronically signed in Other Vendor System> SIGNED BY: Joshua Denson MD 12/11/172321 Initial ED EKG: rate (121), AFIB (Bean Salazar) Plan of Care: Orders Procedure Date/time Status LACTIC ACID 12/12 0202 Active Admit to inpatient 12/[address] HEAD WO IV CONTRAST 12/12 0004 Active BLOOD CULTURE 12/11 2335 Active LACTIC ACID 12/11 230 Complete TYPE & SCREEN (NOT X-MATCH) 12/11 230 Complete ARTERIAL BLOOD GAS (GEN) 12/11 2300 Active Mason, Insertion/Removal/Asses 12/11 2300 Active CULTURE,URINE 12/11 2300 Active TROPONIN LEVEL 12/11 2300 Complete PARTIAL THROMBOPLASTIN TIME 12/11 2300 Complete PROTHROMBIN TIME 12/11 2300 Complete COMPREHENSIVE METABOLIC PANEL 12/11 2300 Complete CBC WITHOUT DIFFERENTIAL 12/11 2300 Complete EKG 12/11 2300 Active URINE DRUG SCREEN FOR ER ONLY 12/11 2258 Active Laboratory Tests 12/11/17 2355: Methadone Screen Pending, Barbiturate Screen Pending, Ur Phencyclidine Scrn Pending, Amphetamines Screen Pending, U Benzodiazepines Scrn Pending, Urine Cocaine Screen Pending, Urine Cannabis Screen Pending 12/11/172304: Lactic Acid 2.5 H 12/11/172304: Anion Gap 21 H, Estimated GFR 35 L, BUN/Creatinine Ratio 15.0, Glucose 52 L, Calcium 9.4, Total Bilirubin 0.6, AST 36, ALT 39, Alkaline Phosphatase 30, Troponin I 0.01, Total Protein 8.7 H, Albumin 5.3 H, Globulin 3.4, Albumin/ Globulin Ratio 1.6, PT 24.2 H, INR 2.20 H, APTT 39 H, CBC w Diff NO MAN DIFF REQ, RBC 4.77, MCV 95.5 H, MCH 32.3 H, MCHC 33.8, RDW 13.7, MPV 7.7, Gran % 84.2 H, Lymphocytes % 10.7 L, Monocytes % 3.1, Eosinophils % 1.8, Basophils % 0.2, Absolute Granulocytes 10.5 H, Absolute Lymphocytes 1.3, Absolute Monocytes 0.4, Absolute Eosinophils 0.2, Absolute Basophils 0 12/11/172299: pH 7.36, pCO2 28 L, pO2 78 L, HCO3 16 L, ABG O2 Sat (Measured) 91.0 L, Carboxyhemoglobin 3.3, O2 Concentration % 60%, O2 Delivery Method PRB, Phlebotomy Draw Site LEFT RADIAL Microbiology 12/11 2334 BLOOD: Blood Culture - ORD 12/11 2334 BLOOD: Blood Culture - ORD 12/11 2300 URINE ROUT: Urine Culture - ORD (Juan LOVETT,Tanner Miles) Departure Departure Disposition: STILL A PATIENT Condition: Stable Clinical Impression Primary Impression: Drug overdose, multiple drugs Referrals: Candice Pat (PCP/Family) Departure Forms: Customer Survey General Discharge Information Admission Note Documentation of Exam: Documentation of any treatments & extenuating circumstances including Concerns Regarding Discharge (functional status, medication knowledge or non-compliance, living conditions, etc.) that warrant an admission rather than observation: Patient will require Narcan drip. Critical care. Repeat labs. Respiratory monitoring. Patient may require intubation if he does not respond to Narcan drip. (Bean Salazar) PA/HABILITATION TRAINING SPECIALIST Co-Sign Statement Statement: ED Attending supervision documentation- [x] I saw and evaluated the patient. I have also reviewed all the pertinent lab results and diagnostic results. I agree with the findings and the plan of care as documented in the PA's/HABILITATION TRAINING SPECIALIST's documentation. 12/12/17, 0:30... I assumed care of the patient soon after the patient's arrival... Pt required narcan 11mg iv in the field and continues to be somnolent , although easily aroused on narcan drip. pt merits narcan gtt and icu level care. [] I have reviewed the ED Record and agree with the PA's/HABILITATION TRAINING SPECIALIST's documentation. [] Additions or exceptions (if any) to the PAs/HABILITATION TRAINING SPECIALIST's note and plan are summarized below: [] (Juan LOVETT,Tanner Miles) Critical Care Note Critical Care Note Critical Care Time: 30-74 min (45) (Bean Salazar)
--- NOTE | 2017-12-12 01:10 | History & Physical ---
Praveen Recinos 12/12/17 0105: General Information and HPI MD Statement: I have seen and personally examined IAN SANFORD and documented this H&P. The patient is a 52 year old M who presented with a patient stated chief complaint of []. History of Present Illness: Ian Sanford is a 52 YO male with PMH of HTN, HLD, carotid artery stenosis s/p right endarterectomy due to visual loss, atrial fibrillation, nephrolithiasis, and depression presents to the ED with an overdose on heroin and possible multiple drug abuse. Patient is drowsy but arousable, therefore the patient's responses are limited and unable to gather complete history. Patient has no family or friends present. Patient, however, mentions he was at a democrat at a [facility] [place] in [place], [place] when he and his friend had been using heroin. Patient states he does not remember exactly the circumstances that brought him to the ED but simply that he was engaging in illicit drug use with heroin and possibly taking Xanax concurrently. Patient denies suicidal ideation or homicidal ideation. Patient states he is unemployed and single. Patient denies chest pain, abdominal pain, shortness of breath, lightheadedness, nausea and vomiting, blurred vision, dysuria, fever but admits to palpitations. Patient has a history of Atrial Fibrillation for which he states he takes medications to control his heart rate. Patient states he takes Xarelto and Cardiazem but can not adequately clarify the strength of dosing. Patient follows up with his Solar Technician Dr. Carbone and states he takes his prescription medications accordingly. Patient denies having an established PCP. Past History Travel History Traveled to [place] past 21 day No Medical History Neurological: NONE EENT: NONE Cardiovascular: AFIB, hypertension, hyperlipidemia, ON XARELTO Respiratory: NONE Gastrointestinal: diverticulitis Hepatic: NONE Renal: nephrolithiasis, hematuria Musculoskeletal: chronic back pain, disk herniation Psychiatric: NONE Endocrine: NONE Blood Disorders: NONE Cancer(s): NONE BLOOD DONOR UNIT ASSISTANT/Reproductive: NONE Other Medical Hx: Hematuria secondary to bladder calculi History of MRSA: No History of VRE: No History of CDIFF: No Surgical History Surgical History: appendectomy, BACK SURGERY (2006) Past Family/Social History Family History Relations & Conditions if any MOTHER, ; Cause: Lung cancer. FATHER (CVA). ; Cause: Surgical complication. Relation not specified for: FH: myocardial infarction Psychosocial History Past Psychosocial History Unobtainable at this time Services at Home: None ETOH Use: 5 Illicit Drug Use: heroin Employment History Employment Unemployed Review of Systems Review of Systems Constitutional: Reports: diaphoresis. Denies: fever, malaise. EENTM: Denies: blurred vision, double vision, visual changes. Cardiovascular: Reports: palpitations. Denies: chest pain, edema, orthopena, peripheral edema. Respiratory: Denies: cough, orthopnea, short of breath. GI: Reports: abdominal pain. Genitourinary: Denies: pain. Musculoskeletal: Denies: joint pain, joint swelling, muscle pain. Skin: Denies: rash. Exam & Diagnostic Data Last 24 Hrs of Vital Signs/I&O Vital Signs Date Time Temp Pulse Resp B/P B/P Pulse O2 O2 Flow FiO2 Mean Ox Delivery Rate 12/12 0015 99 Nasal 2.0L Cannula 12/11 2349 97.4 108 20 155/97 99 Nasal 2.0L Cannula 12/11 2301 103 18 142/80 94 Room Air Intake & Output 12/12 0800 12/12 0000 12/11 1600 Intake Total Output Total 375 Balance -375 Output, Urine 375 Patient 170 lb Weight Weight Estimated Measurement Method Physical Exam General Appearance Cooperative, Mild Distress, Drowsy but arousable HEENT Atraumatic, miosis Neck Supple, No JVD Lymphatic Cervical nl Cardiovascular Normal S1, Normal S2, No Murmurs Lungs Clear to Auscultation Abdomen Soft (tenderness to palpation) Neurological Reflexes 2+ Extremities No Cyanosis, No Edema, Normal Pulses, scratch zacarias b/l lower extremities Vascular Normal Pulses Assessment/Plan Assessment: Problem List: -Polysubstance Drug Abuse, incl. Heroin -Altered Mental Status -Depression -h/o Atrial Fibrillation -h/o HTN/HLD -Admit to the ICU to monitor respiratory effort and possible need for mechanical ventilation -Cont. Naloxone reversal for Heroin overdose; monitor vitals closely and reassess CXR in AM as pulmonary edema is a complication of opiod overdose -Monitor for PROFESSOR OF MARKETING depression and progression of altered mental status -EKG reading: Atrial Fibrillation; patient has chronic Atrial Fibrillation on Cardiazem, admin. Cardiazem for rate control -WBC 12.4, Granulocytes 84.2, Anion Gap 21, Lactic Acid 2.5, BUN 30, Cr 2.0 -CXR: No acute abnormality of chest. The left lung base was not included in the [id number]. -CT Head and Chest w/o Contrast: Pending scan -UDS positve for Opiates, Cocaine, and Cannabis -Assess mental capacity/consult psychiatry for drug abuse As Ranked By This Provider Problem List: 1. Overdose of heroin 2. Substance abuse 3. Rapid atrial fibrillation 4. HTN (hypertension) 5. Depression Core Measures/Misc (02/24) Acute Coronary Syndrome ACS Diagnosis: No Congestive Heart Failure Congestive Heart Failure Diagnosis No Cerebrovascular Accident CVA/TIA Diagnosis: No VTE (View Protocol) VTE Risk Factors Acute Medical Illness No Mechanical VTE Prophylaxis d/t N/A MechProphylax Ordered No VTE Pharm Prophylaxis d/t NA PharmProphylax ordered Sepsis (View protocol) Sepsis Present: No If YES complete Sepsis Event Note If YES complete Sepsis Event Note Julián Zepeda 12/12/17 0114: Core Measures/Misc (02/24) Sepsis (View protocol) If YES complete Sepsis Event Note If YES complete Sepsis Event Note Resident Review Statement Resident Statement: examined this patient, discussed with spring intern, agreed with spring intern, amended to note Other Findings: Mr Sanford is a 52 year old man w/ a PMHx of neprholithiasis with hematuria, HTN , HLD, current 1 pack per day smoker, carotid artery stenosis s/p right endarterectomy 1 year ago and paroxysmal atrial-fibrillation on xarelto who presented to [facility] after he was found to be non-responsive and had to be resuscitated a few hours prior to presentation to the ER. As per the EMR, he was found to be unreponsive, and was given x 1 dose of narcan intranasally, and then 9 mg narcan intravenously by the EMS. He was found to be responsive, after naloxone and was found to have had one episode of vomiting. After he arrived, he responded to painful stimuli and vitals remained stable without any respiratory distress. At the time of interview, he reported that he had occassional palpitations in the last 24 hrs, but no chest pain or dyspnea. He reported to have used heroin during the day, but didnt have any clear recollection of the events before or after the event. No report of fall, or head injury. No recent fever, dyspnea or chest pain. No abdominal pain, dysurea. Reported to have spent significant amount of time outdoors in the last 48 hrs. Reported good medication complaince, and has been using prescription opiates for his pain control. Current smoker, 30 pk year smoking history, and unclear about the duration of IVDA/cocaine use duration. At the time of admission-temperature 97.4, pulse rate 108, respiration 20, blood pressure 142/80, pulse ox 99% on 2 L nasal cannula. General Exam: Somnolent, oriented x 3; responds to verbal stimulus, No acute distress, had vomitus on the face; Skin: excoriations secondary to cat scratches on the [place], no bleeding or erythema s/o cellulitis;HEENT: PERRLA, miosis EOMI; Neck: Supple, No JVD, surgical scar on the right neck; No cervical lymphadenopathy; CVS: Irregular Rate, Normal S1,S2, No MGR; Resp: Normal air entry, no ronchi/rales; Abdomen: Soft, No tenderness, Normal Bowel Sounds;Neuro: Normal Speech, Strength 5/5 b/l x 4 extremities, Sensation intact, CN III-XII NL , Reflexes 2+;Extremities: No cyanosis, no pedal edema, anterior chest wall tendernss. Pertinent lab findings: WBC 12.4 (84% granulocytes), hemoglobin 15.4, platelets 224. Sodium 138, potassium 4.7, chloride 96, HCO3 22, AG 21 (mild AGMA w/ mild resp alk) BUN 30, creatinine 2.0 (baseline 1.0-10/25/2017) Glucose 52 Lactic acid 2.5--> pending Total bilirubin 0.6, AST 36, ALT 39, alkaline phosphatase 30, INR 2.20 (on DOAC) Troponin I-0.01 U tox-positive for opiates, cocained, and cannabis. ABG: pH 7.36, pCO2 28, pO2 78. Chest x-ray 12/11/2017-No acute abnormality of chest. The left lung base was not included in the [id number]. CT head- 12/11/2017- pending. Blood cultures, Urine cultures pending. Problem list: 1. AMS- Metabolic encephalopathy 2. Hypoglycemia ? heroin use 3. Possible aspiration pneumonitis 4. Drug overdose, cocaine and heroin 5. h/o pAfibrillation 6. h/o carotid artery stenosis s/p right endarterectomy 7. h/o HTN 8. h/o HLD 9. h/o nephorlithiasis 10.ДМИТРИЙ 11.Mild AGMA Etiology in his case is likely drug overdose causing metabolic encephalopathy and altered mentation, which can cause severe respiratory and PROFESSOR OF MARKETING depression. He should be admitted to ICU, and monitored closely. Respiratory- Currently stable, and didnt require any intubation, however needs to be monitored closely for respiratory depression given use of opiates. He is curretnly on narcan drip around 1mg/hr, which could be titrated accordingly. Although, there is some circumstantial evidence to believe that he might have aspirated for which he was given 3 gm x 1 Unasyn for possible aspiration which could be continued at a lower dose pending CT scan chest+ sputum cultures. If he remains afebrile, and doesnt have any e/o infection abx should be discontinued in the next 24 hrs. Monitor for any pulmonary edema given use of heroin. Avoid BiPAP, and low threshold for intubation if found to hypoxic or hypercarbic Infectious- Mild leucocytosis w/ granulocytosis which could be reactive, but given possible aspiration( too early to mount any immune response), sepsis should be kept in mind. He should get IVF, and lactate trended. Monitor vitals, and follow cultures. Given his use of heroin, there is always a suspicion for IE , and septic emboli; follow BC and if positive should be followed by Echocardiogram and tailor abx accordingly. Circulatory- stable BP at this time, but he does seem to be tachycardic secondary to cocaine use, opiate withdrawl, and Afib. No beta blockers given recent use of cocaine. No e/o chest pain, but could be blunted in the light of somnolence, check serial EKGs and Trops to make sure there is no coronary spasm. Start short acting cardizem 30mg q6 ( home dose equivalent) in the am. Start xarelto in the am, after confirming that there is no ICH. Hold lisinoril if ДМИТРИЙ persists. Hematology- stable. Metabolic- Hypoglycemia could be multifactorial, and heroin overdose could have caused the hypoglycemia too; accuchecks, and change fluids to D5 1/2 NS if persistently hypoglycemic. No h/o seizures. In regards to ДМИТРИЙ, check FeNA, and lytes. Check CPK given use of cocaine, trend. Check APAP and salicylate level. Check TSHR. He was started on narcan drip, which could be continued for now. Monitor for withdrawls. It is uncler the exact dose of narcan used on the ground to be able to establish the dose of narcan drip, which is usually 2/3rd dose; continue at 1mg/hr and titrte down to 0.5mg/hr in the next 6hrs. For Cocaine use , Ativan prn but hold for sedation. Alimentary- NPO pending swallow eval. Aspiration precautions. Neurology- F/U CT head to r/o any anoxic brain injury, ICH. Fall precautions.Psych, Social work consult. Hold all opiates for now. Pt sees a pain Mgt clinic. CTPMP checked. Continue xanax prn. ICU checklist: 1. DVT PPx- ALPS+xarelto 2. GI Ppx- Protonix iv 3. IV lines- peripheral 4. Full code 5. Ventilator- none 6. IV Fluids- NS 100ml/hr 7. Mason- none 8. Pressors- none 9. Consults- CRCU 10. Diet- NPO pending swallow. 11. Family- couldnt make contact 12. Med Rec- unclear. Please confirm the dose of anti-hypertensives. [facility] 12/12[facility] 7274: General Information and HPI MD Statement: I have seen and personally examined IAN SANFORD and documented this H&P. The patient is a 52 year old M who presented with a patient stated chief complaint of [chemical encephalopathy]. Source of Information: patient Exam Limitations: no limitations Allergies/Medications Allergies: Coded Allergies: NO KNOWN ALLERGIES (08/01/16) Home Med list Albuterol Sulfate (Proventil Hfa) 6.7 GM HFA.AER.AD 2 PUF INH Q4 PRN bronchospasm Alprazolam 1 MG TABLET 1 TAB PO BID PRN anxiety (Reported) Atorvastatin Calcium 20 MG TABLET 1 TAB PO DAILY heart health (Reported) Diltiazem HCl (Cardizem Cd) 180 MG CAP.ER.24H 1 CAP PO DAILY heart health ( Reported) Lisinopril/Hydrochlorothiazide (Lisinopril-Hctz 10-12.5 MG Tab) 10 MG-12.5 MG TABLET 1 TAB PO DAILY blood pressure (Reported) Oxycodone HCl 20 MG TABLET 1 TAB PO TID PAIN (Reported) Rivaroxaban (Xarelto) 20 MG TABLET 1 TAB PO DAILY afib (Reported) with food Past Family/Social History Psychosocial History Where do you live? Home Smoking Status: Current Everyday Smoker Illicit Drug Use: cocaine, heroin Review of Systems Comments 12 point review of systems completely and documented in chart Exam & Diagnostic Data Last 24 Hrs of Vital Signs/I&O Vital Signs Date Time Temp Pulse Resp B/P B/P Pulse O2 O2 Flow FiO2 Mean Ox Delivery Rate 12/12 0206 20 20 169/96 99 Nasal 2.0L Cannula 12/12 0115 98.0 104 18 157/99 100 Nasal 2.0L Cannula 12/12 0015 99 Nasal 2.0L Cannula 12/11 2349 97.4 108 20 155/97 99 Nasal 2.0L Cannula 12/11 2301 103 18 142/80 94 Room Air Intake & Output 12/12 0800 12/12 0000 12/11 1600 Intake Total Output Total 1350 Balance -1350 Output, Urine 1350 Patient 170 lb Weight Weight Estimated Measurement Method Physical Exam General Appearance Alert, Oriented X3, Cooperative Skin No Rashes HEENT Atraumatic, PERRLA, EOMI Neck Supple, No JVD Lymphatic Axillary nl, Cervical nl Cardiovascular Normal S1, Normal S2, No Murmurs, Irreg Irreg Lungs Clear to Auscultation Abdomen Soft Core Measures/Misc (02/24) Sepsis (View protocol) If YES complete Sepsis Event Note If YES complete Sepsis Event Note Attending MD Review Statement Attending Statement Attending MD Statement: examined this patient, discuss w/resident/PA/ENVIRONMENTAL ATTORNEY, agreed w/resident/PA/ENVIRONMENTAL ATTORNEY Attending Assessment/Plan: This patient is a 52 year old man significant past medical history for HTN, HLD, carotid artery stenosis s/p right endarterectomy 1 year ago and paroxysmal atrial-fibrillation on xarelto who presented to [facility] after he was found to be non-responsive and had to be resuscitated a few hours prior to presentation to the ER. As per the EMR, he was found to be unreponsive, and was given x 1 dose of narcan intranasally, and then 9 mg narcan intravenously by the EMS. He was found to be responsive, after naloxone and was found to have had one episode of vomiting. After he arrived, he responded to painful stimuli and vitals remained stable without any respiratory distress. Past medical history, social history, family history and review of systems as per resident notes Vital signs temperature is 90.8 pulse 67 respiratory 16 blood pressure 130/70 satting at 99% Arousable and responsive oriented 3 Pupils equal and reactive to light and accommodation equal ocular motion Neck supple no JVD no lymphadenopathy Lungs clear to auscultation Heart irregularly irregular a controlled Abdomen with some tenderness No neurologic deficit Pertinent lab findings: WBC 12.4 (84% granulocytes), hemoglobin 15.4, platelets 224. Sodium 138, potassium 4.7, chloride 96, HCO3 22, AG 21 (mild AGMA w/ mild resp alk) BUN 30, creatinine 2.0 (baseline 1.0-10/25/2017) Glucose 52 Lactic acid 2.5--> pending Total bilirubin 0.6, AST 36, ALT 39, alkaline phosphatase 30, INR 2.20 (on DOAC) Troponin I-0.01 U tox-positive for opiates, cocained, and cannabis. ABG: pH 7.36, pCO2 28, pO2 78. Chest x-ray 12/11/2017-No acute abnormality of chest. The left lung base was not included in the [id number]. CT head- 12/11/2017- pending. Blood cultures, Urine cultures pending. Assessment and plan This patient is a 52-year-old white male with a significant past medical history for rate controlled A. fib who presents with a heroin overdose. The patient was found with his friend but unfortunately his friend did not survive overdose. The patient is currently in the intensive care unit on a Narcan drip. Reviewed system based plan with resident and agree with above.
[2017-12-12] MEDS ORDERED: ATORVASTATIN CA20 M1 PO (01:30)
[2017-12-12] MEDS ORDERED: LISINOPRIL-HCT1 EAC2 PO (01:30)
[2017-12-12] MEDS ORDERED: XARELTO20 M2 PO (01:30)
[2017-12-12] MEDS ORDERED: ALPRAZOLAM1 M2 PO (01:31)
[2017-12-12] MEDS ORDERED: DILTIAZEM ER180 M1 PO (01:32)
--- NOTE | 2017-12-12 03:24 | CT SCAN REPORT ---
EXAMINATION: CT HEAD WITHOUT CONTRAST CLINICAL INFORMATION: Mental status change COMPARISON: CT head August 01, 2016 TECHNIQUE: Contiguous axial imaging was performed from the skull base to vertex without intravenous administration of contrast. DLP: 788.68 mGy-cm FINDINGS: There is motion which degrades the exam. Images were repeated There is no gross evidence of acute intracranial hemorrhage or territorial infarction. No abnormal mass effect or midline shift is seen. Alexandra to white matter differentiation is well preserved. No extra-axial fluid collections are identified. The ventricles are normal in size. There is no abnormal attenuation within the brain parenchyma. The osseous structures and soft tissues are normal. There is mucosal thickening in the ethmoid sinuses bilateral. There is a small air-fluid level in the left maxillary sinus and lobular mucosal thickening of the posterior right maxillary sinus. The middle ear cavities and the mastoid air cells are normally aerated. IMPRESSION: Exam limited by motion. No gross evidence for acute intracranial pathology. Sinus disease.
[2017-12-12 03:25] VITALS: BP 140/93
--- NOTE | 2017-12-12 03:28 | CT SCAN REPORT ---
EXAMINATION: CT CHEST WITHOUT CONTRAST CLINICAL INFORMATION: Anterior chest wall tenderness. COMPARISON: CT chest August 01, 2016. Portable chest x-ray December 11, 2017 TECHNIQUE: Multidetector volumetric CT imaging of the chest was done. Axial MIP volume rendering provided. Sagittal and coronal reformatted images were obtained. DLP: 439.91 mGy-cm FINDINGS: LUNGS: There are reticular opacities in the subpleural lung at both lung bases consistent with mild basilar atelectasis. No acute infiltrate. The central bronchial airways are open. MEDIASTINUM: There are small shotty lymph nodes in the mediastinum. There is no bulky adenopathy. There is no inflammation. No mediastinal fluid. No pericardial effusion. There is a small hiatal hernia. PLEURA: There is no pleural effusion. No pleural mass or thickening. AXILLA: No lymphadenopathy. UPPER ABDOMEN: Unremarkable. OSSEOUS STRUCTURES: Multilevel degenerative spondylosis spine with endplate spurring of the vertebrae. IMPRESSION: No acute abnormality CT of chest.
--- NOTE | 2017-12-12 07:05 | Cons- CRCU ---
[facility] 12/12/17 0705: General Information and HPI History of Present Illness: Mr Rueda is a 52 year old man w/ a PMHx of neprholithiasis with hematuria, HTN , HLD, current 1 pack per day smoker, carotid artery stenosis s/p right endarterectomy 1 year ago and paroxysmal atrial-fibrillation on xarelto who presented to [facility] after he was found to be non-responsive and had to be resuscitated a few hours prior to presentation to the ER. As per the EMR, he was found to be unreponsive, and was given x 1 dose of narcan intranasally, and then 9 mg narcan intravenously by the EMS. He was found to be responsive, after naloxone and was found to have had one episode of vomiting. After he arrived, he was responsive to painful stimuli and vitals remained stable without any respiratory distress. He is reported to have used heroin during the previous day, but didnt have any clear recollection of the events before or after the event. No report of fall, or head injury. No recent fever, dyspnea or chest pain. No abdominal pain, dysurea. Reported to have spent significant amount of time outdoors in the last 48 hrs. Reported good medication compliance, and has been using prescription opiates for his pain control. Current smoker, 30 pk year smoking history, and unclear about the duration of IVDA/cocaine use duration. At the time of today's interview, the patient is fairly somnolent but oriented x3. Allergies/Medications Allergies: Coded Allergies: NO KNOWN ALLERGIES (08/01/16) Home Med List: Albuterol Sulfate (Proventil Hfa) 6.7 GM HFA.AER.AD 2 PUF INH Q4 PRN bronchospasm Alprazolam 1 MG TABLET 1 TAB PO BID PRN anxiety (Reported) Atorvastatin Calcium 20 MG TABLET 1 TAB PO DAILY heart health (Reported) Diltiazem HCl (Cardizem Cd) 180 MG CAP.ER.24H 1 CAP PO DAILY heart health ( Reported) Lisinopril/Hydrochlorothiazide (Lisinopril-Hctz 10-12.5 MG Tab) 10 MG-12.5 MG TABLET 1 TAB PO DAILY blood pressure (Reported) Oxycodone HCl 20 MG TABLET 1 TAB PO TID PAIN (Reported) Rivaroxaban (Xarelto) 20 MG TABLET 1 TAB PO DAILY afib (Reported) with food Review of Systems Review of Systems Constitutional: Reports: no symptoms. EENTM: Reports: no symptoms. Cardiovascular: Reports: no symptoms. Respiratory: Reports: no symptoms. GI: Reports: no symptoms. Genitourinary: Reports: no symptoms. Musculoskeletal: Reports: no symptoms. Skin: Reports: no symptoms. Neurological/Psychological: Reports: no symptoms. Hematologic/Endocrine: Reports: no symptoms. 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 FATHER (CVA). ; Cause: Surgical complication. Relation not specified for: FH: myocardial infarction Psychosocial History Where Do You Live? Home Services at Home: None Smoking Status: Current Everyday Smoker ETOH Use: 5 Illicit Drug Use: cocaine, heroin Employment History Employment: Unemployed Exam & Diagnostic Data Last 24 Hrs of Vital Signs/I&O Vital Signs Date Time Temp Pulse Resp B/P B/P Pulse O2 O2 Flow FiO2 Mean Ox Delivery Rate 12/12 0628 92 134/92 12/12 0547 99 Nasal 2.0L Cannula 12/12 0400 100 Nasal 2.0L Cannula 12/12 0325 99.6 130 28 140/93 100 Nasal 2.0L Cannula 12/12 0206 20 20 169/96 99 Nasal 2.0L Cannula 12/12 0115 98.0 104 18 157/99 100 Nasal 2.0L Cannula 12/12 0015 99 Nasal 2.0L Cannula 12/11 2349 97.4 108 20 155/97 99 Nasal 2.0L Cannula 12/11 2301 103 18 142/80 94 Room Air Intake & Output 12/12 1600 12/12 0800 07/ 0000 Intake Total 3884 Output Total 4150 Balance -266 Intake, IV 3859 Intake, Oral 25 Number 0 Bowel Movements Output, Urine 4150 Patient 185 lb 170 lb Weight Weight Bed scale Estimated Measurement Method Physical Exam General Appearance: well developed/nourished, lethargic, intoxicated Head: atraumatic, normal appearance Eyes: Bilateral: normal appearance. Respiratory: normal breath sounds, chest non-tender, no respiratory distress Cardiovascular: tachycardia, irregularly irregular Gastrointestinal: soft, non-tender Extremities: normal inspection, no edema Neurologic/Psych: oriented x 3, drowsy Cranial Nerves: normal hearing, normal speech Assessment/Plan CRCU Impression/Plan: Mr Rueda is a 52 year old man w/ a PMHx of neprholithiasis with hematuria, HTN , HLD, current 1 pack per day smoker, carotid artery stenosis s/p right endarterectomy 1 year ago and paroxysmal atrial-fibrillation on xarelto who presented to [facility] after he was found to be non-responsive and had to be resuscitated a few hours prior to presentation to the ER. Due to his somnolent state he had to be started on a Narcan drip. Assessment: 1. Metobolic Encephalopathy 2. ДМИТРИЙ 3. Drug overdose - cocaine and heroin 4. Possible aspiration pneumonitis/pneumonia 5. History of Paroxysmal A.fib 6. History of carotid artery stenosis s/p right endarterectomy 7. History of Hypertension and Hyperlipidemia 8. Elevated Lactic Acid - Resolved Respiratory- Currently on 2L of O2 however needs to be monitored closely for respiratory depression given overdose. - continue Narcan drip and wean off as tolerated. - continue IV Unasyn for now. If patient is afebrile, can likely be discontinued. His white count has trended down since yesterday. - taper down oxygen as tolerated Infectious- Mild leucocytosis w/ granulocytosis on admission which was likely reactive. He did have elevated lactic acid on admission which has since resolved. - follow up respiratory and blood cultures - follow up urine cultures Cardiac - stable BP at this time but he is slightly tachcardic with HR <110. He does have a history of A.fib for which he is on Xarelto and Diltiazem. - continue Xarelto - continue Diltiazem 60mg q8 - continue Atorvastatin - Hold Lisinopril in the context of ДМИТРИЙ Hematology - stable. Metabolic - Reported low blood glucose. - Continue D5-1/2NS for now. - Accucheks q4 for now, if blood sugars within acceptable range can be increased to q6. Renal: ДМИТРИЙ is improving with IVF. Would continue for now. - trend Renal function Alimentary- NPO pending swallow eval. Aspiration precautions. Neurology - CT Head showed no evidence of acute IC pathology. No focal neurological abnormalities DVT PPx - ALPS + Xarelto IV lines- peripheral Code: Full code Consult Acknowledgment - Thank you for your consult request. Mahad Cabrera MD Stephanie 12/12/17 0740: General Information and HPI Consulting Request Date of Consult: 12/12/17 Requested By: Dr. Rosario Reason for Consult: Drug overdose Source of Information: patient, old records Exam Limitations: no limitations Allergies/Medications Current Medications: Current Medications Sig/Billie Start time Last Medication Dose Route Stop Time Status Admin Albuterol Sulfate 2 PUF Q4P PRN 12/12 0145 AC INH Alprazolam 0.5 MG BID PRN 12/12 0900 AC PO 12/19 0859 Ampicillin Sodium/ 1,500 MG Q6 12/12 0600 AC 12/12 Sulbactam Sodium IV 0627 Sodium Chloride 100 ML Ampicillin Sodium/ 0 .STK-MED ONE 12/12 0046 DC Sulbactam Sodium .ROUTE Ampicillin Sodium/ 3,000 MG ONCE ONE 12/11 2345 DC 12/12 Sulbactam Sodium IV 12/12 0014 0050 Sodium Chloride 100 ML Atorvastatin Calcium 20 MG 1700 12/12 1700 AC PO Dextrose/Sodium 1,000 ML Q8H 12/12 0345 AC 07/05 Chloride IV 12/12 1144 0339 Diltiazem HCl 30 MG Q6 12/12 0600 DC PO Diltiazem HCl 60 MG Q8 12/12 0600 AC 07 PO 0628 Lisinopril 20 MG DAILY 12/12 0900 AC PO Naloxone HCl 4 MG Q4H 12/12 0615 AC Sodium Chloride 1,000 ML IV Naloxone HCl 4 MG ONCE ONE 12/12 0330 DC 12/12 Sodium Chloride 1,000 ML IV 12/12 0331 0346 Naloxone HCl 0 .STK-MED ONE 12/11 2316 DC .ROUTE Naloxone HCl 4 MG ONCE ONE 12/11 2315 DC 12/11 Sodium Chloride 1,000 ML IV 12/11 2316 2320 Naloxone HCl 0 .STK-MED ONE 12/11 2315 DC .ROUTE Pantoprazole Sodium 0 .STK-MED ONE 12/12 0137 DC IV Pantoprazole Sodium 40 MG DAILY 12/12 0130 AC 12/12 IV 0140 Rivaroxaban 20 MG DAILY 12/12 899 CAN PO Rivaroxaban 20 MG DAILY 12/12 899 UNV PO Sodium Chloride 1,000 ML Q10H 12/12 0145 DC IV 12/12 2144 Sodium Chloride 1,000 ML ONCE ONE 12/12 0130 CAN IV 12/12 2129 Sodium Chloride 1,000 ML BOLUS ONE 12/12 0115 DC 12/12 IV 12/12 0214 0131 Sodium Chloride 1,000 ML BOLUS ONE 12/12 0115 CAN IV 12/12 0214 Sodium Chloride 1,000 ML BOLUS ONE 12/11 2330 DC 12/11 IV 12/12 0029 2345 Exam & Diagnostic Data Last 24 Hrs of Vital Signs/I&O Vital Signs Date Time Temp Pulse Resp B/P B/P Pulse O2 O2 Flow FiO2 Mean Ox Delivery Rate 12/12 0628 92 134/92 12/12 0547 99 Nasal 2.0L Cannula 12/12 0400 100 Nasal 2.0L Cannula 12/12 0325 99.6 130 28 140/93 100 Nasal 2.0L Cannula 12/12 0206 20 20 169/96 99 Nasal 2.0L Cannula 12/12 0115 98.0 104 18 157/99 100 Nasal 2.0L Cannula 12/12 0015 99 Nasal 2.0L Cannula 12/11 2349 97.4 108 20 155/97 99 Nasal 2.0L Cannula 12/11 2301 103 18 142/80 94 Room Air Intake & Output 12/12 0800 12/12 0000 12/11 1600 Intake Total 3884 Output Total 4150 Balance -266 Intake, IV 3859 Intake, Oral 25 Number 0 Bowel Movements Output, Urine 4150 Patient 185 lb 170 lb Weight Weight Bed scale Estimated Measurement Method Last 48 Hrs of Labs/Bonilla: Laboratory Tests 12/12/17 0615: Sodium Pending, Potassium Pending, Chloride Pending, Carbon Dioxide Pending, Anion Gap Pending, BUN Pending, Creatinine Pending, Glucose Pending, Calcium Pending, Phosphorus Pending, Magnesium Pending, Total Bilirubin Pending, Direct Bilirubin Pending, AST Pending, ALT Pending, Alkaline Phosphatase Pending, Troponin I Pending, Total Protein Pending, Albumin Pending, CBC w Diff Pending, WBC Pending, RBC Pending, Hgb Pending, Hct Pending, MCV Pending, MCH Pending, MCHC Pending, RDW Pending, Plt Count Pending, MPV Pending 12/12/17 0500: Sodium Cancelled, Potassium Cancelled, Chloride Cancelled, Carbon Dioxide Cancelled, Anion Gap Cancelled, BUN Cancelled, Creatinine Cancelled, BUN/ Creatinine Ratio Cancelled, Total Bilirubin Cancelled, Direct Bilirubin Cancelled, AST Cancelled, ALT Cancelled, Alkaline Phosphatase Cancelled, Total Protein Cancelled, Albumin Cancelled 12/12/17 0251: Lactic Acid 1.2 12/11/17 2355: Urine Opiates Screen > 4000.00 H, Methadone Screen 64, Barbiturate Screen < 60, Ur Phencyclidine Scrn < 6.00, Amphetamines Screen < 100, U Benzodiazepines Scrn 0.800, Urine Cocaine Screen > 1000 H, Urine Cannabis Screen > 80.00 H, Ur Random Creatinine 69.6, Ur Random Sodium 70, Ur Random Potassium 34.6, Fraction Sodium Excret 1.5 H 12/11/172304: Lactic Acid 2.5 H 12/11/172304: Anion Gap 21 H, Estimated GFR 35 L, BUN/Creatinine Ratio 15.0, Glucose 52 L, Calcium 9.4, Total Bilirubin 0.6, AST 36, ALT 39, Alkaline Phosphatase 30, Creatine Kinase 200 H, Troponin I 0.01, Total Protein 8.7 H, Albumin 5.3 H, Globulin 3.4, Albumin/Globulin Ratio 1.6, PT 24.2 H, INR 2.20 H, APTT 39 H, CBC w Diff NO MAN DIFF REQ, RBC 4.77, MCV 95.5 H, MCH 32.3 H, MCHC 33.8, RDW 13.7, MPV 7.7, Gran % 84.2 H, Lymphocytes % 10.7 L, Monocytes % 3.1, Eosinophils % 1.8, Basophils % 0.2, Absolute Granulocytes 10.5 H, Absolute Lymphocytes 1.3, Absolute Monocytes 0.4, Absolute Eosinophils 0.2, Absolute Basophils 0, Salicylates < 1.0, Acetaminophen < 10.0 L 12/11/17 230: pH 7.36, pCO2 28 L, pO2 78 L, HCO3 16 L, ABG O2 Sat (Measured) 91.0 L, Carboxyhemoglobin 3.3, O2 Concentration % 60%, O2 Delivery Method PRB, Phlebotomy Draw Site LEFT RADIAL Diagnostic Data Other Results CT chest: no acute abnormality. Assessment/Plan CRCU Other Findings/Comments: I have personally seen and examined the patient, and I agree with the resident's assessment and plan as detailed above. Briefly, the patient is a 52 year old male with a past medical history significant for HTN, hyperlipidemia, carotid artery stenosis s/p right CEA repair, AF on Xarelto, nephrolithiasis and depression. The patient also has a history of chronic back pain with a history of chronic opiate and drug use. The patient was brought in after an apparent drug overdose. The patient reports that he was experienced significant back pain and did not have any pain pills at home. He decided to snort heroin to help with his pain, noting he denies having done this in the past. His urine tox screen was positive for cocaine and cannabis as well. The patient came in lethargic but arousable. He was given Narcan both in the field and in the emergency department. He was started on a Narcan drip. He was found to be hypoglycemic which has improved with the administration of dextrose. The patient had a CT scan of the chest which showed no acute abnormalities which could account for chest tenderness, which was described in the emergency department. The patient currently is on a Narcan drip. He is awake and alert. His vital signs are stable. He is afebrile. He remains in atrial fibrillation which is rate controlled. He is urinating without difficulty. He is moving all extremities without any focality. Morning labs are pending at present. Impression: 1. Acute opiate intoxication with episode of unresponsiveness, now improved on a Narcan drip. 2. Acute renal failure likely secondary to dehydration, with only a mild elevation in CPK. 3. Polysubstance/illicit drug abuse. 4. Chronic back pain. 5. Atrial fibrillation, rate controlled, on Cardizem and Xarelto. 6. History of hypertension, on lisinopril at home. 7. History of hyperlipidemia. 8. History of carotid artery stenosis status post right endarterectomy. 9. Possible aspiration without any current evidence of pneumonia. 10. Hypoglycemia, now improved. Plan: * Follow-up a.m. labs. * Will need to adjust IV fluids based upon renal function. * Monitor urine output closely and observe for the possibility of ATN. * Continue to hold lisinopril in the setting of acute kidney injury. * Slowly titrate Narcan drip down to off, monitoring the patient's mental status closely. * Continue to follow vital signs closely. * Monitor on telemetry, noting the patient has atrial fibrillation. * Continue chronic Xarelto. * Monitor for opiate withdrawal. * Follow-up cultures and monitor on Unasyn. Will discontinue as soon as possible, if no evidence of infection. * Monitor BSs every 4 hours. Monitor for hypoglycemia. * Advance diet as tolerated. * DVT prophylaxis at all times. * Please request social media analyst consult. * Will downgrade later today if the patient continues to improve and has a normal mental status off Narcan drip. Consult Acknowledgment - Thank you for your consult request. Consult Acknowledgment - Thank you for your consult request. Consult Acknowledgment - Thank you for your consult request. Consult Acknowledgment - Thank you for your consult request. Consult Acknowledgment - Thank you for your consult request.
[2017-12-12 07:42] LABS: ABSOLUTE BASOPHIL COUNT 0 /CUMM (0.0-0.2); ABSOLUTE EOSINOPHIL COUNT 0 /CUMM (0.0-0.7); ABSOLUTE LYMPH COUNT 0.8 /CUMM (1.2-3.4); ABSOLUTE MONOCYTE COUNT 0.4 /CUMM (0.10-0.60); BASOPHIL % 0.3 % (0.0-2.0); EOSINOPHIL % 0.2 % (0-5); HEMATOCRIT 41.1 % (42-52); MEAN CORPUSCULAR HGB 32.1 PG (27.0-31.0); MEAN CORPUSCULAR HGB CONC 33.7 G/DL (33.0-37.0); MEAN CORPUSCULAR VOLUME 95.2 FL (80.0-94.0); MEAN PLATELET VOLUME 8.4 FL (7.4-10.4); PLATELET COUNT 173 /CUMM (130-400); RBC DISTRIBUTION WIDTH 13.6 % (11.5-14.5); RED BLOOD CELL CT 4.32 /CUMM (4.70-6.10); WHITE BLOOD CELL COUNT 7.2 /CUMM (4.8-10.8)
[2017-12-12 08:00] VITALS: BP 158/96
[2017-12-12 08:18] LABS: GRANULOCYTE % 83.1 % (42.2-75.2)
--- NOTE | 2017-12-12 11:23 | IP INCIDENTAL NOTE PSYCH ---
Incidental Note Notation: Psychiatry consult requested on this 52 yo male admitted post overdose of heroin and cocaine while at a [facility] per notes. Today, pt is on Narcan drip and is somnolent, unake to participate in interview. Please reconsult when pt more alert if we can be of assistance.
[2017-12-12 12:05] VITALS: BP 150/90
--- NOTE | 2017-12-12 15:53 | Cons- Psychiatry ---
Psychiatric Consult Date of Consult: 12/12/17 Reason for Consult: I was asked to assess this 52-year-old male admitted following an unintentional overdose of heroin. History of Present Illness: This 52-year-old male was brought to the emergency room unresponsive with blood pressure and pulse, responded to Narcan given en route. The patient reports "I sniffed a line of heroin and I do not remember anything after that The patient reports that he has been using opiates since the mid-to-late 1980s following back surgery. He reports that about 3-4 years ago he started overusing them. He has been running out of his prescriptions roughly 1 week early and has been supplementing with opiates that he gets on the streets. About 8-10 months ago he tried using heroin for about 2 months. He took it nasally. He experienced withdrawal symptoms when he did not have an adequate supply and so weaned himself off it. This was the first time since then that he is used heroin. He says that he and his friend had 2 bags which they decided to use together. The patient denies using any other drugs prior to admission. He says that he uses opiates to manage his back pain and opted for heroin on this occasion because it was cheaper. Patient describes his mood as "depressed". He says he has been feeling lonely and down since his girlfriend left 9 months ago. They have been together for 10 years. Reportedly she was dependent on alcohol and cannabis and ultimately he felt he had to end the relationship. His sleep has been poor for 2-3 years due to likely BPH and back pain. No recent change in sleep. He says his appetite has been poor for the last 9 months as has his energy. Concentration is normal. He is not suicidal or homicidal. There are no psychotic symptoms. Of note, the patient's friend as a result of their heroin use. The patient is understandably distressed around this. He states that his motivation for him "never to use that stuff again". Past psychiatric history: The patient has never seen a psychiatrist or being on medication for psychiatric illness. He has no history of deliberate self-harm or suicide attempts. Substance abuse history: Patient started using alcohol at around the age of 15. He reports that he abused alcohol but was never dependent. He has never had any withdrawal symptoms. He drank a beer or 2 daily for time. Currently he drinks a couple of beers roughly 3 times a week. He started smoking marijuana about 10 years ago and smokes once or twice a day. Opiate use as above. Past medical history: Hypertension, hyperlipidemia, carotid artery stenosis with history of right endarterectomy due to visual loss, atrial fibrillation, nephrolithiasis. Current social circumstances: The patient lives alone. As mentioned his relationship with his girlfriend ended 9 months ago. 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 The companies involved either closed or moved. He has not had a steady job for some time. He does occasional jobs on the side. He is not on disability. The patient's has 2 sisters to whom he is not close. He does have a network of supportive friends though. There are visitors in his room when I entered. Allergies: Coded Allergies: NO KNOWN ALLERGIES (08/01/16) Current Medications: Med Albuterol Sulfate 2 PUF INH Q4P PRN 12/12/17 0145 Atorvastatin Calcium 20 MG PO 1700 12/12/17 1700 Diltiazem HCl 180 MG PO BID 12/12/17 2100 Lisinopril 20 MG PO DAILY 12/12/17 0900 Lorazepam 0.5 MG PO Q8 12/12/17 1400 Magnesium Sulfate 1 GM IV ONCE ONE 12/12/17 1415 Dextrose/Water 100 ML Naloxone HCl 4 MG IV Q4H 12/12/17 0615 Sodium Chloride 1,000 ML Pantoprazole Sodium 40 MG IV DAILY 12/12/17 0130 Rivaroxaban 20 MG PO DAILY 12/12/17 0900 Past History Past Medical History Neurological: NONE EENT: NONE Cardiovascular: AFIB, hypertension, hyperlipidemia, ON XARELTO Respiratory: NONE Gastrointestinal: diverticulitis Hepatic: NONE Renal: nephrolithiasis, hematuria Musculoskeletal: chronic back pain, disk herniation Psychiatric: opioid dependence Endocrine: NONE Blood Disorders: NONE Cancer(s): NONE DRUG SAFETY SPECIALIST/Reproductive: NONE Past Surgical History Surgical History: appendectomy, BACK SURGERY (2006) Psychosocial History Strengths/Capabilities: Verbal, motivated for treatment, good supportive network Psychiatric Treatment History Psych Treatment Psychiatric Treatment No Inpatient Treatment No Diagnosis: Unspecified depressive disorder with anxious distress Opiate dependence Assessment/Plan Mental Status Orientation: Person, Place, Situation Mental Status Exam: The patient was alert and oriented 3. He was pleasant and cooperative with interview. Eye contact was good. Speech was normal in rate, rhythm, volume and tone. He described his mood as depressed, his affect was mood congruent and there was distinct quality of mood. He is not suicidal or homicidal. Thought process is normal in tempo, stream and form. There were no delusions or obsessions. Attention and concentration were good. There is no perceptual abnormality. Impulse control is good. Intelligence level is average, fund of knowledge average, use of language appropriate. Recent and remote memory are intact. The patient's insight is good. Judgment is unimpaired. Impression: Unspecified depressive disorder with anxious distress Opiate dependence Acute psychosocial stressors Provisional Treatment Plan: The patient has agreed to a psychiatric outpatient appointment. He will be seen at [facility] on December 24 by Candy Grimes. His appointment is at 9 AM. He should arrive at 845 and bring appropriate paperwork, insurance information and co-pay if appropriate. Thank you for consulting us on this patient. We will sign off for now. Please contact us if we can be of any further assistance.
[2017-12-12 16:00] VITALS: BP 144/86
--- NOTE | 2017-12-12 16:45 | Cons- Cardiology ---
General Information and HPI Consulting Request Date of Consult: 12/12/17 Requested By: Ambrose Rosario MD History of Present Illness: Mr. Rueda carries a history of hypertension and chronic atrial fibrillation. He was most recently admitted to [facility] with a CVA and he is now s/p a right carotid endarterectomy. At the time of his recent CVA he was not on coumadin due to hematuria but he is now on Xarelto for stroke prophylaxis. Pete presented to the ER unconscious in the setting of heroin abuse. After receiving Narcan he is responsive but tachycardic. He denies chest discomfort or lightheadedness but does have occasional palpitations. He does feels that his breathing is poor and is becoming worse although it is no worse than a week ago. He is despondent about his relationship with his girlfriend and has lost some weight due to not eating very much. He does continue to smoke and uses nicotine gum. The patient was found to have increased lung volumes consistent with COPD. For the most part is not aware of his atrial fibrillation. He is only mildly active which he attributes to back pain. In the ER the patient was noted to have some renal insufficiency which is improving. To review his prior history I initially saw this patient in 2012 after he was found to have an irregular heart rhythm with increased heart rate during a routine office visit. He was discovered to be in atrial fibrillation at that time. In the past he reported shortness of breath with minimal exertion and orthopnea. Cardiac workup included an echocardiogram showing a low normal EF of 50% with mild LVH and moderate to severe left atrial enlargement. In terms of cardiac valves he has mild to moderate tricuspid regurgitation, moderate mitral regurgitation and mild pulmonic regurgitation. He was recently admitted with a headache ane a 15 minute visual loss in the right eye. Mild right sided weakness was also noted. Allergies/Medications Allergies: Coded Allergies: NO KNOWN ALLERGIES (08/01/16) Home Med List: Albuterol Sulfate (Proventil Hfa) 6.7 GM HFA.AER.AD 2 PUF INH Q4 PRN bronchospasm Alprazolam 1 MG TABLET 1 TAB PO BID PRN anxiety (Reported) Atorvastatin Calcium 20 MG TABLET 1 TAB PO DAILY heart health (Reported) Diltiazem HCl (Cardizem Cd) 180 MG CAP.ER.24H 1 CAP PO DAILY heart health ( Reported) Lisinopril/Hydrochlorothiazide (Lisinopril-Hctz 10-12.5 MG Tab) 10 MG-12.5 MG TABLET 1 TAB PO DAILY blood pressure (Reported) Oxycodone HCl 20 MG TABLET 1 TAB PO TID PAIN (Reported) Rivaroxaban (Xarelto) 20 MG TABLET 1 TAB PO DAILY afib (Reported) with food Review of Systems Review of Systems: A twelve point review of systems is unremarkable. 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 FATHER (CVA). ; Cause: Surgical complication. Relation not specified for: FH: myocardial infarction Psychosocial History Where Do You Live? Home Services at Home: None Smoking Status: Current Everyday Smoker ETOH Use: 5 Illicit Drug Use: cocaine, heroin, marijuana Employment History Employment: Unemployed Exam & Diagnostic Data Vital Signs and I&O Vital Signs Date Time Temp Pulse Resp B/P B/P Pulse O2 O2 Flow FiO2 Mean Ox Delivery Rate 12/12 1205 99.3 115 19 150/90 100 Room Air 12/12 1200 100 Room Air 12/12 1117 Nasal 2.0L Cannula 12/12 0948 104 140/80 12/12 0800 97 Nasal 2.0L Cannula 12/12 0800 99.8 85 24 158/96 97 Nasal 2.0L Cannula 12/12 0628 92 134/92 12/12 0547 99 Nasal 2.0L Cannula 12/12 0400 100 Nasal 2.0L Cannula 12/12 0325 99.6 130 28 140/93 100 Nasal 2.0L Cannula 12/12 0206 20 20 169/96 99 Nasal 2.0L Cannula 12/12 0115 98.0 104 18 157/99 100 Nasal 2.0L Cannula 12/12 0015 99 Nasal 2.0L Cannula 12/11 2349 97.4 108 20 155/97 99 Nasal 2.0L Cannula 12/11 2301 103 18 142/80 94 Room Air Intake & Output 12/12 1600 12/12 0800 12/12 0000 12/11 1600 12/11 0812/11 0000 Intake Total 2721 3884 Output Total 2750 4150 Balance -29 -266 Intake, IV 2381 3859 Intake, Oral 340 25 Number 1 0 Bowel Movements Output, Urine 2750 4150 Patient 187 lb 170 lb Weight Weight Bed scale Estimated Measurement Method Physical Exam: General: WD/WN male in NAD; alert and oriented x 3 HEENT: NC/AT, PERRL, EOMI Neck: no JVD, no carotid bruit Heart: irregularly irregular and tachycardic Lungs: clear bilaterally Abdomen: soft, NT, +ve bowel sounds Extremities: no edema Assessment/Plan Assessment/Plan * This patient is normally on Cardizem SR 180mg BID for rate control and has been anticoagulated with Xarelto for stroke prophylaxis in the setting of his atrial fibrillation. He has an elevated INR at the present time likely related to hepatic congestion but this is expected to improve. He is also mildly tachycardic but this is likely due to some dehydration. He was noted to have an elevated creatinine of over 2 upon initial presentation which is likely due to a pre-renal state and it is improving. As it does, I expect his heart rate will also improve. Otherwise this patient appears hemodynamically stable without signs of decompensated CHF or myocardial ischemia. Obtain an echocardiogram. Consult Acknowledgment - Thank you for your consult request.
[2017-12-13] VITALS: BP 134/85
[2017-12-13 04:51] LABS: ABSOLUTE BASOPHIL COUNT 0 /CUMM (0.0-0.2); ABSOLUTE EOSINOPHIL COUNT 0.1 /CUMM (0.0-0.7); ABSOLUTE GRANULOCYTE CT 4.9 /CUMM (1.4-6.5); ABSOLUTE LYMPH COUNT 1.9 /CUMM (1.2-3.4); ABSOLUTE MONOCYTE COUNT 0.6 /CUMM (0.10-0.60); BASOPHIL % 0.5 % (0.0-2.0); EOSINOPHIL % 0.9 % (0-5); GRANULOCYTE % 64.9 % (42.2-75.2); HEMATOCRIT 38.2 % (42-52); MEAN CORPUSCULAR HGB 32.2 PG (27.0-31.0); MEAN CORPUSCULAR HGB CONC 33.7 G/DL (33.0-37.0); MEAN CORPUSCULAR VOLUME 95.7 FL (80.0-94.0); MEAN PLATELET VOLUME 8.2 FL (7.4-10.4); PLATELET COUNT 166 /CUMM (130-400); RBC DISTRIBUTION WIDTH 13.7 % (11.5-14.5); WHITE BLOOD CELL COUNT 7.6 /CUMM (4.8-10.8)
--- NOTE | 2017-12-13 07:09 | PN- Resident CRCU ---
Subjective HPI/CRCU Issues: Opiate Overdose Patient seen and examined. Feels better. Complains of some back pain which he states is new. 24 Hour Events: No acute events overnight. Off Narcan drip and oxygen. Heart rate is well controlled in 80-90s. Objective Vital Signs & I&O Last 8 Hrs of Vitals and I&O: Intake & Output 12/13 0800 Intake Total 120 Output Total 550 Balance -430 Intake, IV 0 Intake, Oral 120 Number 0 Bowel Movements Output, Urine 550 Exam General Appearance: well developed/nourished, alert, awake, mild distress Head: atraumatic, normal appearance Respiratory: normal breath sounds, chest non-tender Cardiovascular: irregularly irregular, no murmurs Gastrointestinal: soft, non-tender Extremities: no edema Cranial Nerves: normal hearing, normal speech Skin: intact, normal color, warm/dry Skin Temp/Moisture Exam: Warm/Dry Current Medications: Current Medications Sig/Billie Start time Last Medication Dose Route Stop Time Status Admin Acetaminophen 1,000 MG ONCE ONE 12/13 1999 DC 12/12 N/A 1 UNIT IV 12/12 Albuterol Sulfate 2 PUF Q4P PRN 12/12 0145 AC INH Alprazolam 0.5 MG BID PRN 12/12 0900 DC PO 12/19 0859 Ampicillin Sodium/ 1,500 MG Q6 12/12 06 DC 12/12 Sulbactam Sodium IV 0627 Sodium Chloride 100 ML Atorvastatin Calcium 20 MG 1700 12/12 1700 AC 12/12 PO 1659 Dextrose/Sodium 1,000 ML Q8H 12/12 0345 DC 12/12 Chloride IV 12/12 1144 0339 Diltiazem HCl 180 MG BID 12/12 2100 AC PO Diltiazem HCl 90 MG ONCE ONE 12/12 1215 DC 07 PO 12/12 1216 1347 Diltiazem HCl 60 MG Q8 12/12 0600 DC 12/12 PO 0628 Lisinopril 20 MG DAILY 12/12 0900 AC 12/12 PO 0948 Lorazepam 0.5 MG Q8 / 1400 AC 12/13 PO 12/19 1359 0620 Magnesium Sulfate 1 GM ONCE ONE 12/13 0715 AC Dextrose/Water 100 ML IV 12/13 1114 Magnesium Sulfate 1 GM ONCE ONE 12/12 1415 DC 12/12 Dextrose/Water 100 ML IV 12/12 1814 1522 Metoprolol Tartrate 5 MG ONCE ONE 12/12 1545 DC IV 12/12 1546 Naloxone HCl 4 MG Q4H 12/12 0615 DC 12/12 Sodium Chloride 1,000 ML IV 1347 Pantoprazole Sodium 40 MG DAILY 12/12 0130 AC 12/12 IV 0948 Potassium Chloride 40 MEQ ONCE ONE 12/13 0715 DC PO 12/13 0716 Rivaroxaban 20 MG DAILY 12/12 0900 AC 12/12 PO 0948 Impression/Plan Impression/Problem List Impression: Mr Rueda is a 52 year old man w/ a PMHx of neprholithiasis with hematuria, HTN , HLD, current 1 pack per day smoker, carotid artery stenosis s/p right endarterectomy 1 year ago and paroxysmal atrial-fibrillation on xarelto who presented to [facility] after he was found to be non-responsive and had to be resuscitated a few hours prior to presentation to the ER. Due to his somnolent state he had to be started on a Narcan drip. Assessment: 1. Metobolic Encephalopathy - improved 2. ДМИТРИЙ - resolved 3. Drug overdose - cocaine and heroin 4. History of Paroxysmal A.fib 5. History of carotid artery stenosis s/p right endarterectomy 6. History of Hypertension and Hyperlipidemia 7. Elevated Lactic Acid - Resolved Respiratory - Off oxygen and saturating well on room air. - off Narcan drip - IV Unasyn was discontinued due to low suspicion for aspiration pneumonia. Infectious- Mild leucocytosis w/ granulocytosis on admission which was likely reactive. He did have elevated lactic acid on admission which has since resolved. - follow up respiratory and blood cultures - negative so far - follow up urine cultures - no growth Cardiac - stable BP and heart rate. - continue Xarelto - continue Diltiazem 180mg BID - continue Atorvastatin - His ДМИТРИЙ has resolved. Continue Lisinopril. - Await Echocardiogram. Hematology - found to have heme +ve stools. He does report to have 30lbs weight loss in the past few months. - outpatient follow up with GI with colonoscopy. Metabolic - improved - no need for further IVF. Renal: ДМИТРИЙ has resolved. Alimentary- Regular diet. - Nutrition consult to optimize nutritional status. Neurology - CT Head showed no evidence of acute IC pathology. No focal neurological abnormalities DVT PPx - ALPS + Xarelto IV lines- peripheral Code: Full code Problem List: 1. Overdose of heroin Pain Ratin Tomorrow's Labs & Rationales: CBC, ICU bundle Plan DVT/Prophylaxis: mechanical
[2017-12-13 08:00] VITALS: BP 114/70
--- NOTE | 2017-12-13 09:06 | Patient Discharge Instructions ---
Discharge Instructions General Discharge Information You were seen/treated for: Opiod Overdose Special Instructions: Please follow up with your PCP and business project manager within 1-2 weeks of discharge. Please follow your [facility] outpatient psychiatric appointment on December 24. You were advised to enter treatment for substance abuse and should be tapered off your benzodiazepines and opioids. Diet Continue normal diet: Yes Activity Full Activity/No Limits: Yes Acute Coronary Syndrome Inclusion Criteria At DC or during hospital stay patient has or had the following: ACS DIAGNOSIS No Discharge Core Measures Meds if any: Prescribed or Continued at Discharge Meds if any: NOT Prescribed or Continued at Discharge Congestive Heart Failure Inclusion Criteria At DC or during hospital stay patient has or had the following: CHF DIAGNOSIS No Discharge Core Measures Meds if any: Prescribed or Continued at Discharge Meds if any: NOT Prescribed or Continued at Discharge Cerebrovascular accident Inclusion Criteria At DC or during hospital stay patient has or had the following: CVA/TIA Diagnosis No Discharge Core Measures Meds if any: Prescribed or Continued at Discharge Meds if any: NOT Prescribed or Continued at Discharge Venous thromboembolism Inclusion Criteria VTE Diagnosis No VTE Type NONE VTE Confirmed by (Test) NONE Discharge Core Measures - Per Current guidelines, there needs to be overlap - treatment for the first 5 days of Warfarin therapy. - If discharged on Warfarin prior to 5 days of - overlap therapy, the patient will need to be - assessed for post discharge needs including - *Post discharge parental anticoagulation - *Warfarin and/or parental anticoagulation education - *Follow up date to check INR post discharge At least 5 days overlap therapy as Inpatient No Meds if any: Prescribed or Continued at Discharge Note: Overlap Therapy is Warfarin and Anticoagulant Meds if any: NOT Prescribed or Continued at Discharge
--- NOTE | 2017-12-13 09:11 | PN- Cardiology ---
Subjective Subjective: * Patient is back to baseline without physical complaints. He continues to have issues with depression. * atrial fibrillation with controlled heart rate. * creatinine is now in the normal range Objective Vital Signs and I&Os Vital Signs Date Time Temp Pulse Resp B/P B/P Pulse O2 O2 Flow FiO2 Mean Ox Delivery Rate 12/13 0400 94 Room Air 12/13 0000 98.2 98 15 134/85 97 Room Air 12/13 0000 97 Room Air 12/12 2328 108 127/84 12/12 2101 98.9 12/12 2002 99.8 12/12 2000 97 Room Air 12/12 1600 98.5 117 10 144/86 98 Room Air 12/12 1205 99.3 115 19 150/90 100 Room Air 12/12 1200 100 Room Air 12/12 1117 Nasal 2.0L Cannula 12/12 0948 104 140/80 Intake & Output 12/13 1600 12/13 0800 12/13 0000 12/12 1600 12/12 0800 12/12 0000 Intake Total 796 406 0583 3884 Output Total 106 885 9299 2800 Balance -430 -540 -29 1084 Intake, IV 0 0 2381 3859 Intake, Oral 120 360 340 25 Number 0 0 1 0 Bowel Movements Output, Urine 085 146 8437 2800 Patient 187 lb 187 lb 170 lb Weight Weight Bed scale Estimated Measurement Method Physical Exam: General: WD/WN male in NAD; alert and oriented x 3 HEENT: NC/AT, PERRL, EOMI Neck: no JVD, no carotid bruit Heart: irregularly irregular Lungs: clear bilaterally Abdomen: soft, NT, +ve bowel sounds Extremities: no edema Assessment/Plan Assessment/Plan * Continue Cardizem SR 180 mg BID and Xarelto for stroke prophylaxis. His prior tachycardia was due to dehydration and has improved. He will not need to be on a diuretic but Lisinopril should be continued at its current dose. He is stable to go to the general medical floor. Continue telemetry? No
--- NOTE | 2017-12-13 09:25 | PN- CRCU ---
Subjective HPI/Critical Care Issues: The patient is awake and alert. He reports feeling significantly improved. His heart rate was mildly elevated in the past 24 hours, and he remains in atrial fibrillation. His respiratory status is stable on room air with saturations in the mid to high 90s. He is afebrile. There were no overnight events reported. He has been off Narcan since yesterday afternoon without any evidence of oversedation. Objective Current Medications: Current Medications Sig/Billie Start time Last Medication Dose Route Stop Time Status Admin Acetaminophen 1,000 MG ONCE ONE 12/13 1999 DC 12/12 N/A 1 UNIT IV 12/12 Albuterol Sulfate 2 PUF Q4P PRN 12/12 0145 AC INH Alprazolam 0.5 MG BID PRN 12/12 0900 DC PO 12/19 0859 Ampicillin Sodium/ 1,500 MG Q6 12/12 0600 DC 12/12 Sulbactam Sodium IV 0627 Sodium Chloride 100 ML Atorvastatin Calcium 20 MG 1700 / 1700 AC 12/12 PO 1659 Dextrose/Sodium 1,000 ML Q8H 12/12 0345 DC 07 Chloride IV 12/12 1144 0339 Diltiazem HCl 180 MG BID 12/12 2100 AC 12/13 PO 0908 Diltiazem HCl 90 MG ONCE ONE 12/12 1215 DC 07 PO 12/12 1216 1347 Diltiazem HCl 60 MG Q8 12/12 0600 DC 07 PO 0628 Lisinopril 20 MG DAILY 12/12 0900 AC 12/13 PO 0908 Lorazepam 0.5 MG Q8 12/12 1400 AC 12/13 PO 12/19 1359 0620 Magnesium Sulfate 1 GM ONCE ONE 12/13 0715 AC 12/13 Dextrose/Water 100 ML IV 12/13 1114 0801 Magnesium Sulfate 1 GM ONCE ONE 12/12 1415 DC 07/ Dextrose/Water 100 ML IV 12/12 1814 1522 Metoprolol Tartrate 5 MG ONCE ONE 12/12 1545 DC IV 12/12 1546 Naloxone HCl 4 MG Q4H 12/12 0615 DC 12/12 Sodium Chloride 1,000 ML IV 1347 Pantoprazole Sodium 40 MG DAILY 12/12 0130 AC 12/13 IV 0909 Potassium Chloride 40 MEQ ONCE ONE 12/13 0715 DC 12/13 PO 12/13 0716 0909 Rivaroxaban 20 MG DAILY 12/12 09 AC 12/13 PO 0908 Vital Signs & I&O Last 24 Hrs of Vitals and I&O: Vital Signs Date Time Temp Pulse Resp B/P B/P Pulse O2 O2 Flow FiO2 Mean Ox Delivery Rate 12/13 0908 77 112/76 12/13 0908 67 112/76 12/13 0400 94 Room Air 12/13 0000 98.2 98 15 134/85 97 Room Air 12/13 0000 97 Room Air 12/12 2328 108 127/84 12/12 2101 98.9 12/12 2001 99.8 12/13 1999 97 Room Air 12/12 1600 98.5 117 10 144/86 98 Room Air 12/12 1205 99.3 115 19 150/90 100 Room Air 12/12 1200 100 Room Air 12/12 1117 Nasal 2.0L Cannula 12/12 0848 104 140/80 Intake & Output 12/13 1600 12/13 0800 12/13 0000 Intake Total 120 360 Output Total 550 900 Balance -430 -540 Intake, IV 0 0 Intake, Oral 120 360 Number 0 0 Bowel Movements Output, Urine 550 900 Patient 187 lb Weight Exam General Appearance: well developed/nourished, no apparent distress, alert, awake , comfortable Head: atraumatic, normal appearance Neck: supple Respiratory: no respiratory distress, lungs clear Cardiovascular: irregularly irregular Abdomen: normal bowel sounds, soft, non-tender Extremities: no edema Skin: intact, normal color, warm/dry Results Last 24 Hrs of Lab Results: Laboratory Tests 12/13/17 0405: Anion Gap 10, Estimated GFR > 60, Glucose 101 H, Calcium 8.5, Phosphorus 2.5, Magnesium 1.8, Total Bilirubin 0.7, AST 21, ALT 32, Albumin 3.1 L, CBC w Diff NO MAN DIFF REQ, RBC 4.00 L, MCV 95.7 H, MCH 32.2 H, MCHC 33.7, RDW 13.7, MPV 8.2, Gran % 64.9, Lymphocytes % 25.2, Monocytes % 8.5, Eosinophils % 0.9, Basophils % 0.5, Absolute Granulocytes 4.9, Absolute Lymphocytes 1.9, Absolute Monocytes 0.6, Absolute Eosinophils 0.1, Absolute Basophils 0 12/12/17 1150: Troponin I < 0.01 Impression/Plan Impression/Plan Impression/Plan: 1. Acute cocaine/heroin overdose, resolved, off Narcan drip. 2. Acute renal failure likely secondary to dehydration, resolved. 3. Polysubstance/illicit drug abuse. 4. Chronic opiate and benzodiazepine dependence. 5. Atrial fibrillation, rate controlled, on Cardizem and Xarelto. 6. History of hypertension, on lisinopril at home. 7. History of hyperlipidemia. 8. History of carotid artery stenosis status post right endarterectomy. 9. Possible aspiration without any current evidence of pneumonia. 10. Hypoglycemia, now resolved. 11. Unintentional weight loss -the patient states he has lost approximately 30 pounds in the past few months. He attributes this to not eating well at home. He complains of depression which he relates to his recent break up with his girlfriend. Recommendations: * Continue with pain control. * Continue atorvastatin, Cardizem and Xarelto. * Resume home dose of lisinopril. * Follow up cardiology recommendations, appreciate input. * Nutrition consult - increase caloric intake? * DVT prophylaxis at all times. * Follow-up foster care social worker input. * Downgrade from ICU.
--- NOTE | 2017-12-13 09:59 | ECHOCARDIOGRAM REPORT ---
IAN SANFORD Age: 52 : 1965 Gender: M Exam Date: 12/12/2017 19:12 Exam Location: [facility] Ht (in): 71 Wt (lb): 187 BSA: 2.07 BP: 144 / 86 Ordering Physician: Favian Bennett MD Referring Physician: Mark Carbone MD, PhD Technologist: Joyce Stubbs [facility] Room Number: 108 Indications: AFIB/FLUTTER Rhythm: Atrial fibrillation Technical Quality: good FINDINGS Left Ventricle Normal left ventricular size, wall thickness and systolic function with no obvious regional wall motion abnormalities. The ejection fraction is visually estimated at 60%. Right Ventricle The right ventricle is normal in size and function. Right Atrium The right atrium is normal in size. Left Atrium The left atrium is normal in size. The interatrial septum is intact. Mitral Valve The mitral valve has mild annular calcification and mild prolapse of the posterior leaflet. There is mild mitral regurgitation. Aortic Valve Structurally normal aortic valve without significant sclerosis or stenosis. There is no aortic regurgitation. Tricuspid Valve The tricuspid valve is normal in structure and function. There is mild tricuspid regurgitation. Pulmonary artery systolic pressure is normal. Pulmonic Valve Structurally normal pulmonic valve. There is trace pulmonic regurgitation. Pericardium Normal pericardium without effusion. No pleural effusion. Great Vessels Normal aortic root dimension. The aortic arch and great vessels are well seen and are normal. CONCLUSIONS 1. Normal EF of 60%. 2. Mild mitral regurgitation. Mild prolapse of the posterior mitral valve leaflet. 3. Mild tricuspid regurgitation. Mark Carbone M.D. (Electronically Signed) Final Date: 13 December 2017 09:58 MEASUREMENTS (Male / Female) Normal Values 2D ECHO LV Diastolic Diameter PLAX 3.8 cm 4.2 - 5.9 / 3.9 - 5.3 cm LV Systolic Diameter PLAX 2.5 cm 2.1 - 4.0 cm LV Fractional Shortening PLAX 34.2 % 25 - 46 % LV Ejection Fraction 2D Teich 64.0 % IVS Diastolic Thickness 1.2 cm LVPW Diastolic Thickness 1.1 cm LV Relative Wall Thickness 0.6 RV Internal Dim ED PLAX 3.1 cm 1.9 - 3.8 cm LVOT Diameter 2.0 cm Aortic Root Diameter 3.7 cm LA Systolic Diameter LX 3.8 cm 3.0 - 4.0 / 2.7 - 3.8 cm LA Volume 52.0 cm 18 - 58 / 22 - 52 cm Ascending Aorta Diameter 3.3 cm DOPPLER AV Peak Velocity 111.0 cm/s AV Peak Gradient 4.9 mmHg AV Mean Velocity 80.6 cm/s AV Mean Gradient 3.0 mmHg AV Velocity Time Integral 22.8 cm LVOT Peak Velocity 93.6 cm/s LVOT Peak Gradient 3.5 mmHg LVOT Mean Velocity 65.4 cm/s LVOT Mean Gradient 2.0 mmHg LVOT Velocity Time Integral 16.7 cm LVOT Stroke Volume 52.5 cm AV Area Cont Eq vti 2.3 cm AV Area Cont Eq pk 2.6 cm MV Peak Velocity 135.0 cm/s MV Peak Gradient 7.3 mmHg MV Mean Velocity 67.1 cm/s MV Mean Gradient 2.0 mmHg Mitral E Point Velocity 103.0 cm/s MV PHT Velocity 138.0 cm/s MV Deceleration Ness 516.0 cm/s MV Pressure Half Time 80.2 ms MV Area PHT 2.7 cm MV Deceleration Time 162.0 ms TR Peak Velocity 254.0 cm/s TR Peak Gradient 25.8 mmHg Right Atrial Pressure 5.0 mmHg Pulmonary Artery Systolic Pressu 30.8 mmHg Right Ventricular Systolic Press 30.8 mmHg PV Peak Velocity 123.0 cm/s PV Peak Gradient 6.1 mmHg PV Mean Velocity 82.0 cm/s PV Mean Gradient 3.0 mmHg PV Velocity Time Integral 26.2 cm LV E' Lateral Velocity 13.1 cm/s Mitral E to LV E' Lateral Ratio 7.9 LV E' Septal Velocity 13.2 cm/s Mitral E to LV E' Septal Ratio 7.8
[2017-12-13 15:37] VITALS: BP 124/84
[2017-12-13 21:22] VITALS: BP 130/92
[2017-12-14 06:21] VITALS: BP 136/100
[2017-12-14 08:32] LABS: ABSOLUTE BASOPHIL COUNT 0.1 /CUMM (0.0-0.2); ABSOLUTE EOSINOPHIL COUNT 0.1 /CUMM (0.0-0.7); ABSOLUTE GRANULOCYTE CT 5.1 /CUMM (1.4-6.5); ABSOLUTE LYMPH COUNT 1.6 /CUMM (1.2-3.4); ABSOLUTE MONOCYTE COUNT 0.5 /CUMM (0.10-0.60); BASOPHIL % 0.7 % (0.0-2.0); EOSINOPHIL % 1.2 % (0-5); GRANULOCYTE % 69.3 % (42.2-75.2); HEMATOCRIT 38.8 % (42-52); MEAN CORPUSCULAR HGB 31.6 PG (27.0-31.0); MEAN CORPUSCULAR HGB CONC 33.4 G/DL (33.0-37.0); MEAN CORPUSCULAR VOLUME 94.6 FL (80.0-94.0); MEAN PLATELET VOLUME 8.2 FL (7.4-10.4); PLATELET COUNT 163 /CUMM (130-400); RBC DISTRIBUTION WIDTH 13.5 % (11.5-14.5); RED BLOOD CELL CT 4.11 /CUMM (4.70-6.10); WHITE BLOOD CELL COUNT 7.3 /CUMM (4.8-10.8)
--- NOTE | 2017-12-14 14:12 | PN- Pulmonary ---
Subjective HPI/Critical Care Issues: Seen and examined independently Doing well Did have a BM last night No complaints Objective Current Medications: Current Medications Sig/Billie Start time Last Medication Dose Route Stop Time Status Admin Albuterol Sulfate 2 PUF Q4P PRN 12/12 0145 AC INH Atorvastatin Calcium 20 MG 1700 12/12 1700 AC 12/13 PO 1654 Diltiazem HCl 180 MG BID 12/12 2100 AC 12/14 PO 0815 Lidocaine 1 PAT DAILY 12/14 0945 AC 12/14 TOP 0949 Lisinopril 20 MG DAILY 12/12 0900 AC 12/14 PO 0815 Lorazepam 0.5 MG Q8 12/12 1400 AC 12/14 PO 12/19 1359 1330 Nicotine 21 MG DAILY 12/14 0900 AC 12/14 TOP 0816 Oxycodone HCl 5 MG Q8P PRN 12/13 1145 AC 12/14 PO 1330 Pantoprazole Sodium 40 MG DAILY 12/12 0130 AC 12/14 IV 0816 Rivaroxaban 20 MG DAILY 12/12 0900 AC 12/14 PO 0815 Vital Signs & I&O Last 24 Hrs of Vitals and I&O: Vital Signs Date Time Temp Pulse Resp B/P B/P Pulse O2 O2 Flow FiO2 Mean Ox Delivery Rate 12/14 0815 84 136/98 12/14 0815 88 136/98 12/14 0621 98.1 83 16 136/100 98 Room Air 12/13 2122 98.1 52 130/92 95 Room Air 12/13 2056 56 136/92 12/13 1600 Room Air 12/13 1537 98.8 76 16 124/84 98 Room Air Intake & Output 12/14 1600 12/14 0800 12/14 0000 Intake Total 1520 260 140 Output Total 400 Balance 1520 -140 140 Intake, IV 20 20 20 Intake, Oral 1500 240 120 Output, Urine 400 Impression/Plan Impression/Plan Impression/Plan: General Appearance: well developed/nourished, no apparent distress, alert, awake , comfortable Head: atraumatic, normal appearance Neck: supple Respiratory: no respiratory distress, lungs clear Cardiovascular: irregularly irregular Abdomen: normal bowel sounds, soft, non-tender Extremities: no edema Skin: intact, normal color, warm/dry 1. Acute cocaine/heroin overdose, resolved, off Narcan drip. Now stable 2. Acute renal failure likely secondary to dehydration, resolved. 3. Polysubstance/illicit drug abuse. 4. Chronic opiate and benzodiazepine dependence. 5. Atrial fibrillation, rate controlled, on Cardizem and Xarelto. 6. History of hypertension, on lisinopril at home. 7. History of hyperlipidemia. 8. History of carotid artery stenosis status post right endarterectomy. 9. Possible aspiration without any current evidence of pneumonia. 10. Hypoglycemia, now resolved. 11. Unintentional weight loss -the patient states he has lost approximately 30 pounds in the past few months. He attributes this to not eating well at home. He complains of depression which he relates to his recent break up with his girlfriend. CT chest nil acute REC Cont current meds Stable Follow all other rec Cont xeralto and other meds PSych consult noted and needs out pt eval see their note from t7October dc in am Signed out to Dr. Noriega who will assume his care needs social svc consult
[2017-12-14 14:20] VITALS: BP 114/68
[2017-12-14 14:22] VITALS: BP 118/82
--- NOTE | 2017-12-14 15:37 | PN- Cardiology ---
Subjective Subjective: * Doing much better without complaints. * Heart rate is well controlled. Objective Vital Signs and I&Os Vital Signs Date Time Temp Pulse Resp B/P B/P Pulse O2 O2 Flow FiO2 Mean Ox Delivery Rate 12/14 1422 97.9 82 18 118/82 97 Room Air 12/14 0815 84 136/98 12/14 0815 88 136/98 12/14 0621 98.1 83 16 136/100 98 Room Air 12/13 2122 98.1 52 130/92 95 Room Air 12/13 2056 56 136/92 12/13 1600 Room Air 12/13 1537 98.8 76 16 124/84 98 Room Air Intake & Output 12/14 1600 12/14 0800 12/14 0000 12/13 1600 12/13 0800 12/13 0000 Intake Total 1520 260 140 610 120 360 Output Total 400 150 550 900 Balance 1520 -140 140 460 -430 -540 Intake, IV 20 20 20 130 0 0 Intake, Oral 1500 240 120 480 120 360 Number 1 0 0 Bowel Movements Output, Urine 400 150 550 900 Patient 187 lb Weight Physical Exam: General: WD/WN male in NAD; alert and oriented x 3 HEENT: NC/AT, PERRL, EOMI Neck: no JVD, no carotid bruit Heart: irregularly irregular Lungs: clear bilaterally Abdomen: soft, NT, +ve bowel sounds Extremities: no edema Assessment/Plan Assessment/Plan * Continue Cardizem SR 180 mg BID and Xarelto for stroke prophylaxis. His prior tachycardia was due to dehydration and has improved. Do not restart his pre- admission diuretic. Continue Lisinopril. Continue telemetry? No
--- NOTE | 2017-12-14 17:47 | PN- Att Addend ---
Attending Addendum Attending Brief Note 52M PMH HTN, HLD, current 1 pack per day smoker, carotid artery stenosis s/p right endarterectomy 1 year ago and paroxysmal atrial-fibrillation on xarelto admitted initially to ICU after being found unresponsive due to cocaine and heroin unintentional overdose, required Narcan drip, course complicated by ДМИТРИЙ due to dehydration. Patient is asymptomatic today, wants to go home. No complaints. Creatinine normalized. Vitals stable. Seen by psychiatry and can be discharged home with outpatient follow up. 1. Heroin/cocaine overdose 2. Unresponsiveness 3. ДМИТРИЙ secondary to pre-renal azotemia 4. Paroxysmal atrial fibrillation Plan - Stable for discharge home - Continue home medications - Outpatient psychiatry follow up
--- NOTE | 2017-12-15 11:25 | Discharge Summary ---
Visit Information Visit Dates Admission Date: 12/12/17 Discharge Date: 12/14/17 Hospital Course Course Attending Physician: Mahad Cabrera MD Primary Care Physician: Roc GERMANGuthrie Robert P[facility] Hospital Course: Mr Rueda is a 52 year old man w/ a PMHx of neprholithiasis with hematuria, HTN , HLD, current 1 pack per day smoker, carotid artery stenosis s/p right endarterectomy 1 year ago and paroxysmal atrial-fibrillation on xarelto who was brought to the [facility] by EMS after he was found to be unresponsive and had to be resuscitated. Below is a list of conditions he was seen and treated for: Acute Heroin/Cocaine Overdose: Patient was found to be unreponsive, and was given x 1 dose of narcan intranasally, and then 9 mg narcan intravenously by the EMS. He was found to be responsive, after naloxone. After presentation to the ED the patient was transferred to the ICU and subsequently started on a Narcan drip. His Utox was positive for opiates and cocaine. Patient responded well to treatment and his mentation improved on Narcan. He was slowly weaned off the drip. He was evaluated by psychiatry and he has agreed to a psychiatric outpatient appointment. He will be seen at [facility] on December 24. He was discharged in stable disposition. ДМИТРИЙ: His Cr was found to be elevated to 2.0 on admission which was likely pre-renal in the setting of dehydration. This resolved with IVF. Elevated Lactic Acid: Elevated to 2.5 on admission but resolved with fluid hydration. Weight Loss and Guiac +ve stools: the patient states he has lost approximately 30 pounds in the past few months ( unintentional). He attributes this to not eating well at home. His stool guaics were found to be positive. He was recommended to follow up with GI doctor as an outpatient for further work up including a colonoscopy. Allergies: Coded Allergies: NO KNOWN ALLERGIES (08/01/16) Significant Procedures: SERVICE DATE: 12/12/17-1719 EXAM TYPE: CARD - ECHOCARDIOGRAM FINDINGS Left Ventricle Normal left ventricular size, wall thickness and systolic function with no obvious regional wall motion abnormalities. The ejection fraction is visually estimated at 60%. Right Ventricle The right ventricle is normal in size and function. Right Atrium The right atrium is normal in size. Left Atrium The left atrium is normal in size. The interatrial septum is intact. Mitral Valve The mitral valve has mild annular calcification and mild prolapse of the posterior leaflet. There is mild mitral regurgitation. Aortic Valve Structurally normal aortic valve without significant sclerosis or stenosis. There is no aortic regurgitation. Tricuspid Valve The tricuspid valve is normal in structure and function. There is mild tricuspid regurgitation. Pulmonary artery systolic pressure is normal. Pulmonic Valve Structurally normal pulmonic valve. There is trace pulmonic regurgitation. Pericardium Normal pericardium without effusion. No pleural effusion. Great Vessels Normal aortic root dimension. The aortic arch and great vessels are well seen and are normal. CONCLUSIONS 1. Normal EF of 60%. 2. Mild mitral regurgitation. Mild prolapse of the posterior mitral valve leaflet. 3. Mild tricuspid regurgitation. SERVICE DATE: 12/12/17 EXAM TYPE: CAT - CT CHEST WO IV CONTRAST FINDINGS: LUNGS: There are reticular opacities in the subpleural lung at both lung bases consistent with mild basilar atelectasis. No acute infiltrate. The central bronchial airways are open. MEDIASTINUM: There are small shotty lymph nodes in the mediastinum. There is no bulky adenopathy. There is no inflammation. No mediastinal fluid. No pericardial effusion. There is a small hiatal hernia. PLEURA: There is no pleural effusion. No pleural mass or thickening. AXILLA: No lymphadenopathy. UPPER ABDOMEN: Unremarkable. OSSEOUS STRUCTURES: Multilevel degenerative spondylosis spine with endplate spurring of the vertebrae. IMPRESSION: No acute abnormality CT of chest. SERVICE DATE: 12/12/17 EXAM TYPE: CAT - CT HEAD WO IV CONTRAST FINDINGS: There is motion which degrades the exam. Images were repeated There is no gross evidence of acute intracranial hemorrhage or territorial infarction. No abnormal mass effect or midline shift is seen. Alexandra to white matter differentiation is well preserved. No extra-axial fluid collections are identified. The ventricles are normal in size. There is no abnormal attenuation within the brain parenchyma. The osseous structures and soft tissues are normal. There is mucosal thickening in the ethmoid sinuses bilateral. There is a small air-fluid level in the left maxillary sinus and lobular mucosal thickening of the posterior right maxillary sinus. The middle ear cavities and the mastoid air cells are normally aerated. IMPRESSION: Exam limited by motion. No gross evidence for acute intracranial pathology. Sinus disease. SERVICE DATE: 12/11/17 EXAM TYPE: RAD - XRY-PORTABLE CHEST XRAY FINDINGS: The left lung bases and diaphragm is excluded from the film. Patient's rotated to left. The visualized lungs are clear. No pulmonary vascular congestion. No pneumothorax or large pleural effusion IMPRESSION: No acute abnormality of chest. The left lung base was not included in the [id number]. Disposition Summary Disposition Principal Diagnosis: Acute Heroin and Cocaine Overdose ДМИТРИЙ Elevated Lactic Acid Additional Diagnosis: Paroxysmal A.fib Hypertension and Hyperlipidemia Discharge Disposition: home or self care Discharge Instructions General Discharge Information Code Status: Full Code Patient's Diet: Regular Patient's Activity: As tolerated Follow-Up Instructions/Appts: Please follow up with your PCP and desulfurizer hand within 1-2 weeks of discharge. Please follow your [facility] outpatient psychiatric appointment on December 24. You were advised to enter treatment for substance abuse and should be tapered off your benzodiazepines and opioids. Medications at Discharge Discharge Medications: Continue taking these medications: Oxycodone HCl (Oxycodone HCl) 20 MG TABLET 1 Tablet ORAL THREE TIMES DAILY as needed for Pain Qty = 84 Comments: Last Taken: 12/14 Time: 2 PM Albuterol Sulfate (Proventil Hfa) 6.7 GM HFA.AER.AD 2 Puff Inhale through mouth Every 4 hours as needed for bronchospasm Qty = 1 Comments: Last Taken: NOT GIVEN Time: Rivaroxaban (Xarelto) 20 MG TABLET 1 Tablet ORAL DAILY Qty = 90 Instructions: with food Comments: Last Taken: 12/14 Time: 8 AM Lisinopril/Hydrochlorothiazide (Lisinopril-Hctz 10-12.5 MG Tab) 10 MG-12.5 MG TABLET 1 Tablet ORAL DAILY Qty = 90 Comments: Last Taken: 12/14 Time: 8 AM Atorvastatin Calcium (Atorvastatin Calcium) 20 MG TABLET 1 Tablet ORAL DAILY Qty = 90 Comments: Last Taken: 12/13 Time: 5PM Alprazolam (Alprazolam) 1 MG TABLET 1 Tablet ORAL TWICE DAILY as needed for anxiety Qty = 60 Comments: Last Taken: NOT GIVEN Time: Diltiazem HCl (Diltiazem ER) 180 MG CAPSULE.ER 1 Tablet ORAL TWICE DAILY Qty = 60 Comments: Last Taken: 12/14 Time: 8 AM Copies To: Candice Pat Qty = 90 Comments: Last Taken: 12/13 Time: 5PM Alprazolam (Alprazolam) 1 MG TABLET 1 Tablet ORAL TWICE DAILY as needed for anxiety Qty = 60 Comments: Last Taken: NOT GIVEN Time: Diltiazem HCl (Diltiazem ER) 180 MG CAPSULE.ER 1 Tablet ORAL TWICE DAILY Qty = 60 Comments: Last Taken: 12/14 Time: 8 AM Copies To: Candice Pat
== END 2017-12-14 16:35 | DRG 816 ==
LOC: ERH 22:57 → ERHI 12-12 00:30 → CRI 12-12 00:30 → 2NB 12-12 00:30 → ENRESERV 12-12 01:35 → CRI 12-12 03:00 → ENTRNSPT 12-13 18:16 → 2NB 12-13 18:26 → EDTRNSPTSTS 12-13 18:28 → EDTRNSPT 12-13 18:28 → CMPTRNSPT 12-13 18:35 → ENPENDDIS 12-14 16:18 → 2NB 12-14 16:35
PROVIDERS: Internal Medicine; Internal Medicine Endocrinology, Diabetes & Metabolism; Physician Assistant Medical
DX: T40.1X1A Poisoning by heroin, accidental (unintentional), initial encounter (principal); T40.5X1A Poisoning by cocaine, accidental (unintentional), initial encounter; G92 Toxic encephalopathy; J69.0 Pneumonitis due to inhalation of food and vomit; F17.200 Nicotine dependence, unspecified, uncomplicated; N17.9 Acute kidney failure, unspecified; E86.0 Dehydration; I48.0 Paroxysmal atrial fibrillation; Z79.01 Long term (current) use of anticoagulants; F11.20 Opioid dependence, uncomplicated; F13.20 Sedative, hypnotic or anxiolytic dependence, uncomplicated; E78.5 Hyperlipidemia, unspecified; R63.4 Abnormal weight loss; Z68.24 Body mass index [BMI] 24.0-24.9, adult; G89.29 Other chronic pain
CPT/HCPCS: 2NBP; 84133; 84300; CCU; 36415; 36592; 71045; 80307; 82436; 82570; 87040; 87070; 87086; 93005; 93010; 93306; 96361; 96374; 96375; 99291; G0480; J0131; J2310; J3490; J7042